=== PATIENT | male | born 1985 | race Caucasian/White ===

== ENCOUNTER → 2024-06-13 | Outpatient (CLI) | payer BC, SELFPAY ==
[2024-06-13 13:21] LABS: Anion Gap 12 (5-15); BUN 9 mg/dL (4-19); BUN/Creat Ratio 12.8 RATIO (10-20); Calcium,Total 9.8 mg/dL (7.6-11.0); Chloride 105 mmol/L (98-108); Cholesterol 155 mg/dL (<=200); Creatinine, Serum 0.74 mg/dL (0.70-1.20); EST Glomerular Filtration Rate 120 (>60); Glucose 114 mg/dL (70-99); High Density Lipoprotein 53 mg/dL; Low Density Lipoprotein Calc. 90 mg/dL; Potassium 4.3 mmol/L (3.3-5.1); Sodium Level 141 mmol/L (133-145); Triglycerides 63 mg/dL; Very Low Density Lipoprotein 13 mg/dL (5-40); cholesterol:hdl ratio screen 2.94
== END | disposition home or self-care (01) ==
LOC: MTLAB 11:19
PROVIDERS: PCP Family Medicine; Referring Provider Family Medicine; Visit Provider Family Medicine
DX: Z00.00 Encounter for general adult medical examination without abnormal findings (principal)
CPT/HCPCS: 36415; 80048; 80061

== ENCOUNTER 2024-06-20 11:18 | Emergency (ER) | payer BC, SELFPAY ==
[2024-06-20] VITALS (8 sets, daily range): BP systolic 135–159; BP diastolic 91–108; PULSE 71–94; RESP 14–17; TEMP 36.6–36.9; O2SAT 97–99; BMI 28.9
--- NOTE | 2024-06-20 11:41 | EKG12_ITS ---
Test Reason : CHEST PAIN Blood Pressure : */* mmHG Vent. Rate : 82 BPM Atrial Rate : 82 BPM P-R Int : 120 ms QRS Dur : 104 ms QT Int : 380 ms P-R-T Axes : 55 70 18 degrees QTcB Int : 443 ms Normal sinus rhythm Normal ECG Confirmed by Jaden Porter ([id number]), newspaper editor MANUEL SPEARS ([id number]) on 06/23/2024 6:51:01 AM Referred By: Confirmed By: Jaden Porter
--- NOTE | 2024-06-20 11:41 | RAD_ITS ---
PROCEDURE: CHEST PA AND LATERAL 06/20/2024 REASON FOR EXAM: CHEST PAIN. ELEVATED BLOOD PRESSURE. TECHNIQUE: Frontal and lateral views of the chest. COMPARISON: No relevant prior. FINDINGS: Lungs: Lungs clear of pneumonia and congestion. Old healed granulomatous changes. Pleura: No pleural effusions, thickening, or pneumothorax. Heart: Normal in size and configuration. Mediastinum/Rylee: Unremarkable. Great vessels: Unremarkable. Bones/soft tissues: Unremarkable. Cardiac monitoring leads overlie the chest wall. RAD/Chest PA and Lateral IMPRESSION: No active cardiopulmonary disease. Sign report. Reading Location: [place] [id number]
--- NOTE | 2024-06-20 11:49 | ED.VIS.CHEST ---
HPI History of Present Illness Chief Complaint: Chest Pain Narrative Narrative: Patient is a 38-year-old male with past medical history of hypertension who presented to the emergency department the chief complaint of elevated blood pressure and chest pain. Patient states that about an hour ago he noted that his blood pressure was elevated and he had chest pain associated with this. He states that he checked his blood pressure this morning as he has been checking on a regular basis because he has a follow-up appointment coming up with his primary care physician in regards to his elevated blood pressure. He states that he was recently started on 5 mg of lisinopril for his elevated blood pressure. He states that originally he had hypertension but dropped about 40 pounds and his blood pressure normalized. He states that recently he did travel to [place] with his father and notes that they did not take any breaks they basically drove straight there and then on return home drove straight back. He states that he has no history of blood clots. He does endorse some shortness of breath with this. [facility] Medical History Hypertension Home Medications ?Medication ?Instructions ?Recorded ?Last Taken ?Type lisinopril 5 mg tablet 5 mg PO DAILY 06/20/24 06/20/24 History Allergy/AdvReac Type Severity Reaction Status Date / Time No Known Allergies Allergy Verified 06/20/24 11:36 Social History Smoking Status: Never smoker ROS ROS ED ROS Narrative Constitutional: Denies fevers, chills, headaches Cardiovascular: Complains of chest pain as noted above denies palpitations Respiratory: Complains of some shortness of breath denies coughing wheezing Abdomen: Denies nausea vomit diarrhea Neurological: Denies numbness, weakness, tingling Musculoskeletal: Denies back pain Skin: Denies rashes or lesions EXAM Physical Exam Narrative Exam Narrative: General: Patient was lying in bed rest comfortably did not appear to be in acute distress Head: Atraumatic, normocephalic Eyes: PERRL bilateral, EOMI bilateral, no conjunctival injection noted Neck: Soft, supple, trachea midline Cardiovascular: Regular rate and rhythm Respiratory: Clear to auscultation bilaterally Abdomen: Soft, nondistended no tenderness palpation Extremities: +5/5 strength noted in the bilateral upper and lower extremity, radial pulse +2/4 in the about upper extremities Neurological: Patient was following commands knew that he was at [facility] 2024 Skin: Warm, dry, intact no rashes or lesions noted Const Vital Signs: 06/20/24 11:18 06/20/24 11:32 06/20/24 11:41 Temperature 98.4 F Temperature Source Oral Pulse Rate 87 Respiratory Rate 16 Respiratory Effort Normal Blood Pressure 159/108 H Blood Pressure Mean 125 Pulse Ox 99 98 Oxygen Delivery Method Room Air Room Air 06/20/24 12:18 06/20/24 13:00 06/20/24 13:49 Temperature Temperature Source Pulse Rate 74 71 72 Respiratory Rate 16 16 16 Respiratory Effort Blood Pressure 144/91 H 135/100 H 135/100 H Blood Pressure Mean 108 111 111 Pulse Ox 98 97 98 Oxygen Delivery Method Room Air Room Air 06/20/24 14:00 Temperature Temperature Source Pulse Rate 94 Respiratory Rate 14 Respiratory Effort Blood Pressure 146/99 H Blood Pressure Mean 114 Pulse Ox 98 Oxygen Delivery Method MDM MDM MDM Narrative Medical decision making narrative: Patient is a 38-year-old male who presented to the emerged part with a chief complaint of chest pain. On the differential diagnose includes but limited to hypertension, hypertensive emergency, PE. Once workup is obtained reviewed he will be reevaluated. Patient's CBC was reviewed and showed no evidence leukocytosis white blood count was normal at 9, hemoglobin 15.1, platelet count normal at 405. Patient D-dimer normal at 0.30, sodium normal 140, potassium of 4, creatinine normal at 0.80. Patient troponin was 7 with a delta troponin obtained RB 7. Patient's EKG reviewed showed sinus rhythm with a rate of 82 bpm. Patient's chest x-ray was reviewed and showed no active cardiopulmonary disease. On reevaluation the patient is feeling better he would like to go home at this point time. Patient's lisinopril will be increased from 5 mg to 10 mg daily and was advised to keep a blood pressure log like he is doing. He is advised to call his primary care physician for a follow-up appointment and return with worsening symptoms or concerns. He is agreeable this plan as well as mother at bedside all question concerns answered he is discharged home in stable condition. Lab Data Labs: Laboratory Results - last 24 hr 06/20/24 06/20/24 11:30 13:16 WBC 9.0 RBC 4.85 Hgb 15.1 Hct 45.0 MCV 92.8 MCH 31.1 MCHC 33.6 RDW Std Deviation 40.3 RDW Coeff of Sammy 11.8 Plt Count 405 MPV 9.9 Immature Gran % (Auto) 0.300 Neut % (Auto) 73.1 H Lymph % (Auto) 18.2 L [place] % (Auto) 6.7 Eos % (Auto) 1.1 Baso % (Auto) 0.6 Absolute Neuts (auto) 6.6 Absolute Lymphs (auto) 1.64 Nucleated RBC % 0 D-Dimer Quant (PE/DVT) 0.30 Sodium 140 Potassium 4.0 Chloride 104 Carbon Dioxide 21.7 Anion Gap 14 BUN 9 Creatinine 0.80 Estim Creat Clear Calc 156.84 Est GFR (MDRD) Non-Af 117 BUN/Creatinine Ratio 11.1 Glucose 112 H Calcium 9.9 Troponin T High Sens 7 Troponin T Hi Sens 2 Hr 7 Radiography Diagnostic Testing: Clinical Impression(s) from Imaging Studies Chest X-Ray 06/20/24 11:41 IMPRESSION: No active cardiopulmonary disease. Sign report. Reading Location: [place] [address] Discharge Plan Triage Chief Complaint: Chest Pain ED Provider: Garrick Ma Dx/Rx/DC Orders Clinical Impression: Chest pain, Hypertension Prescriptions: No Action lisinopril 5 mg tablet 5 mg PO DAILY Primary Care Provider: Hiren Ansari Referrals: Hiren Ansari MD [Primary Care Provider] - Activity Restrictions/Additional Instructions: Increase your lisinopril dose from 5 mg to 10 mg daily. Keep your blood pressure log as you are already doing. Return for worsening symptoms or concerns as we discussed here. Your workup here today was largely unremarkable. Print Language: Mold[place] Disposition Disposition: Home, Self Care
[2024-06-20 11:55] LABS: Absolute Lymphocyte Count 1.64 X10^3/uL (0.83-4.51); Absolute Neutrophil Count 6.6 X10^3/uL (2.0-7.7); Basophil# 0.05 X10^3/uL; Basophil% 0.6 % (0-1); Eosinophils% 1.1 % (0-5); Hemoglobin 15.1 g/dL (13.0-16.5); Lymphocyte # 1.64 X10^3/ul (0.83-4.51); Lymphocyte % 18.2 % (19-41); Mean Corp Hgb Conc 33.6 g/dL (32-36); Mean Corpuscular Hgb 31.1 pg (27.0-32.0); Mean Corpuscular Volume 92.8 fL (80-94); Mean Platelet Vol. 9.9 fl (6.2-12.0); Monocyte% 6.7 % (0-10); NRBC Flagged by Analyzer 0 % (0-5); Neutrophil # 6.59 X10^3/uL (2.7-7.7); Neutrophil % 73.1 % (47-70); Platelet Count 405 K/mm3 (150-450); RBC Distribution Width CV 11.8 % (11.6-14.6); RBC Distribution Width SD 40.3 fl (35.1-43.9); Red Blood Count 4.85 M/mm3 (4.6-6.2)
[2024-06-20 12:21] LABS: Anion Gap 14 (5-15); BUN 9 mg/dL (4-19); BUN/Creat Ratio 11.1 RATIO (10-20); Calcium,Total 9.9 mg/dL (7.6-11.0); Carbon Dioxide 21.7 mmol/L (21.0-32.0); Chloride 104 mmol/L (98-108); EST Glomerular Filtration Rate 117 (>60); Estimated Creatinine Clearance 156.84 ml/min (50-250); Glucose 112 mg/dL (70-99); Sodium Level 140 mmol/L (133-145); Troponin T High Sensitivity 7 ng/L (<=22)
[2024-06-20 14:10] LABS: Troponin T High Sens 2 HR 7 ng/L (<=22)
== END 2024-06-20 14:49 | disposition home or self-care (01) ==
PROVIDERS: Emergency Provider Emergency Medicine; PCP Family Medicine; Visit Provider Emergency Medicine
DX: R07.9 Chest pain, unspecified (principal); I10 Essential (primary) hypertension
CPT/HCPCS: 71046; 80048; 84484; 85025; 85379; 93005; 99284; A4216

== ENCOUNTER → 2024-10-17 | Outpatient (CLI) | payer BC, SELFPAY ==
--- OUTSIDE RECORDS SUMMARY | 2024-10-17 06:24 | XMS RPT_ITS | CCD ---
Author Organization [facility] Team Providers Care Extrusion Die Coordinator Name Role Phone Unavailable Primary Care Provider UnavailEMELY Bradford Referring Unavailable JULIAN DIEHL Consulting Unavailable Coty FERRER, Dr. Maradiaga Primary Care Provider [phone] Coty FERRER, Dr. Maradiaga Attending Provider Coty FERRER, Dr. Maradiaga Referring Provider [phone] Dr. Garrick Ma DO Emergency Provider Hiren Ansari Primary Care Unavailable Hiren Ansari Attending Unavailable Hiren Ansari Referring Unavailable Hiren Ansari Primary Care Unavailable Garrick Ma Attending Unavailable NONE NONE, NONE~[phone] NONE Primary Care Unavailable MAXWELL DO~[phone], MAXWELL MELVIN K Attending Unavailable MAXWELL DO~[phone], MAXWELL MELVIN K Admitting Unavailable NONE NONE, NONE~[phone] NONE Consulting Unavailable SULMA, Consulting Unavailable ROSA KELLY APRN Consulting Unavail able ROSA KELLY APRN Consulting Unavail able Allergies Allergy Classification Reported Allergen(s) Allergy Type Date of Onset Reaction(s) Facility (1 source) MISC-ENV; Translations: [MISC-ENV] Propensity to adverse reactions (disorder) [facility] Repository Medications Current Medications Medication Drug Class(es) Dates Sig (Normalized) Sig (Original) lisinopril 5 mg oral tablet (1 source) Angiotensin Converting Enzyme Inhibitor Start: 06-20-2024 take 1 tablet by mouth once daily Lisinopril 5 mg tablet Active 5 mg PO DAILY June 20, 2024 12:00am Completed/Discontinued Medications Medication Drug Class(es) Dates Sig (Normalized) Sig (Original) losartan potassium 25 mg oral tablet (1 source) Angiotensin 2 Receptor Kaz Start: 10-24-2022 losartan (COZAAR) 25 mg tablet Problems Problem Classification Problem Date Documented Da te Episodic/Chronic E Codes: Place of occurrence (1 source) Garden or yard of unspecified non-institutional (private) residence as the place of occurrence of the external cause; Translations: [GARDN YRD UNS NON INST RES OCUR EXT] Onset: 07-30-2024 Episodic E Codes: Unspecified (1 source) Activity, gardening and landscaping; Translations: [ACTIVITY GARDENING AND LANDSCAPING] Onset: 07-30-2024 Episodic Essential hypertension (1 source) Hypertensive disorder; Translations: [Essential (primary) hypertension] 06-20-2024 Chronic Nonspecific chest pain (4 sources) Chest pain; Translations: [Chest pain, unspecified] Onset: 11-08-2022 11-08-2022 Episodic Other injuries and conditions due to external causes (3 sources) Foreign body on external eye, part unspecified, right eye, initial encounter; Translations: [FB EXT EYE PART UNS RT EYE INIT ENC] Onset: 07-25-2024 Episodic Unclassified (1 source) OTH OBJ OWEN/ORG MAT OWEN ORIFICE INT; Translations: [OTH OBJ OWEN/ORG MAT OWEN ORIFICE INT] Onset: 07-30-2024 Results Test Name Value Interpretation Reference Range Facility 12 Lead EKGon 06-20-2024 12 Lead EKG [facility] Cardiovascular Services [address] [place] [address] 12 Lead EKG 06/20/24 1123 MR#: [id number] Acct: [id number] Name: WILMAN HEARD Yanira Rep #: [id number] : 1985 38 From: Jaden Porter MD Attending Dr: Status: DEP ER Ordering Dr: Garrick Ma DO Date: 06/20/24 Location: ED Sex: M C Admitted: Test Reason : CHEST PAIN Blood Pressure : */* mmHG Vent. Rate : 82 BPM Atrial Rate : 82 BPM P-R Int : 120 ms QRS Dur : 104 ms QT Int : 380 ms P-R-T Axes : 55 70 18 degrees QTcB Int : 443 ms Normal sinus rhythm Normal ECG Confirmed by Jaden Porter ([id number]), assistant production editor MANUEL SPEARS ([id number]) on 06/23/2024 6:51:01 AM Referred By: Confirmed By: Jaden Porter 06/23/24 0651 Date Jaden Porter MD CC: Dr. Hiren Ansari MD; Dr. Garrick Ma DO Signed Normal [facility] Absolute neutrophil countOrd ered By: Garrick Ma on 06-20-2024 Neutrophils (Bld) [#/Vol] 6.6 10*3/uL 2.0-7.7 [facility] Anion gap in Serum or Plasma Ordered By: Garrick Ma on 06-20-2024 Anion gap [Moles/Vol] 14 mmol/L 07-24 [facility] BUN/creatinine ratioOrdered By: Garrick Ma on 06-20-2024 Urea nitrogen/Creatinine [Mass ratio] 11.1 mg/mg 12-29 [facility] Basic Metabolic Profile (BMP )on 06-20-2024 BUN/CRE 11.1 RATIO Normal 12-29 [facility] Comment on above: Performed By: #### L 500.2500, L100.0100, L300.8000, L501.4021 #### [facility] [address] [place], [address] Calcium [Mass/Vol] 9.9 mg/dL Normal 7.6-11.0 [facility] Comment on above: Performed By: #### L 500.2500, L100.0100, L300.8000, L501.4021 #### [facility] [address] [place], [address] Chloride [Moles/Vol] 104 mmol/L Normal 98-108 [facility] Comment on above: Performed By: #### L 500.2500, L100.0100, L300.8000, L501.4021 #### [facility] [address] [place], [address] CO2 [Moles/Vol] 21.7 mmol/L Normal 21.0-32.0 [facility] Comment on above: Performed By: #### L 500.2500, L100.0100, L300.8000, L501.4021 #### [facility] [address] [place], [address] Creatinine [Mass/Vol] 0.80 mg/dL Normal 0.70-1.20 [facility] Comment on above: Performed By: #### L 500.2500, L100.0100, L300.8000, L501.4021 #### [facility] [address] [place], [address] ECRCL 156.84 ml/min Normal 50-250 [facility] Comment on above: Performed By: #### L 500.2500, L100.0100, L300.8000, L501.4021 #### [facility] [address] [place], [address] GAP 14 Normal 5-15 [facility] Comment on above: Performed By: #### L 500.2500, L100.0100, L300.8000, L501.4021 #### [facility] [address] [place], [address] GFR/1.73 sq M.predicted among non-blacks MDRD (S/P/Bld) [Vol rate/Area] 117 mL/min/{1.73_m2} Normal >60 [facility] Comment on above: Result Comment: mL/m in/1.73m2 CKD-EPI Creatinine Equation (2020) Performed By: #### L 500.2500, L100.0100, L300.8000, L501.4021 #### [facility] [address] [place], [address] Glucose [Mass/Vol] 112 mg/dL High 70-99 [facility] Comment on above: Performed By: #### L 500.2500, L100.0100, L300.8000, L501.4021 #### [facility] [address] [place], [address] Potassium [Moles/Vol] 4.0 mmol/L Normal 3.3-5.1 [facility] Comment on above: Performed By: #### L 500.2500, L100.0100, L300.8000, L501.4021 #### [facility] [address] [place], [address] Sodium [Moles/Vol] 140 mmol/L Normal 133-145 [facility] Comment on above: Performed By: #### L 500.2500, L100.0100, L300.8000, L501.4021 #### [facility] [address] [place], [address] Urea nitrogen [Mass/Vol] 9 mg/dL Normal 4-19 [facility] Comment on above: Performed By: #### L 500.2500, L100.0100, L300.8000, L501.4021 #### [facility] [address] [place], [address] Basophil percentageOrdered B y: Garrick Anil on 06-20-2024 Basophils/100 WBC (Bld) 0.6 % 0-1 [facility] CBC W/Diff, Automatedon 06-10 Absolute Lymph 1.64 X10 3/uL Normal 0.83-4.51 [facility] Comment on above: Performed By: #### L 500.2500, L100.0100, L300.8000, L501.4021 #### [facility] [address] [place], [address] Absolute Neut 6.6 X10 3/uL Normal 2.0-7.7 [facility] Comment on above: Performed By: #### L 500.2500, L100.0100, L300.8000, L501.4021 #### [facility] [address] [place], [address] Basophils/100 WBC (Bld) 0.6 % Normal 0-1 [facility] Comment on above: Performed By: #### L 500.2500, L100.0100, L300.8000, L501.4021 #### [facility] [address] [place], [address] Eosinophils/100 WBC (Bld) 1.1 % Normal 0-5 [facility] Comment on above: Performed By: #### L 500.2500, L100.0100, L300.8000, L501.4021 #### [facility] [address] [place], [address] Erythrocyte distribution width (RBC) [Ratio] 11.8 % Normal 11.6-14.6 [facility] Comment on above: Performed By: #### L 500.2500, L100.0100, L300.8000, L501.4021 #### [facility] [address] [place], [address] Hematocrit (Bld) [Volume fraction] 45.0 % Normal 40-54 [facility] Comment on above: Performed By: #### L 500.2500, L100.0100, L300.8000, L501.4021 #### [facility] [address] [place], [address] Hemoglobin (Bld) [Mass/Vol] 15.1 g/dL Normal 13.0-16.5 [facility] Comment on above: Performed By: #### L 500.2500, L100.0100, L300.8000, L501.4021 #### [facility] [address] [place], [address] IG% 0.300 Normal 0.0-0.9 [facility] Comment on above: Result Comment: IG% - Immature Granulocytes (promyelocytes, myelocytes and metamyelocytes) > 1% indicates that a LEFT SHIFT is Present. Performed By: #### L 500.2500, L100.0100, L300.8000, L501.4021 #### [facility] [address] [place], [address] Lymphocytes/100 WBC (Bld) 18.2 % Low 19-41 [facility] Comment on above: Performed By: #### L 500.2500, L100.0100, L300.8000, L501.4021 #### [facility] [address] [place], [address] MCH (RBC) [Entitic mass] 31.1 pg Normal 27.0-32.0 [facility] Comment on above: Performed By: #### L 500.2500, L100.0100, L300.8000, L501.4021 #### [facility] [address] [place], [address] MCHC (RBC) [Mass/Vol] 33.6 g/dL Normal 32-36 [facility] Comment on above: Performed By: #### L 500.2500, L100.0100, L300.8000, L501.4021 #### [facility] [address] [place], [address] MCV (RBC) [Entitic vol] 92.8 fL Normal 80-94 [facility] Comment on above: Performed By: #### L 500.2500, L100.0100, L300.8000, L501.4021 #### [facility] [address] [place], [address] Monocytes/100 WBC (Bld) 6.7 % Normal 0-10 [facility] Comment on above: Performed By: #### L 500.2500, L100.0100, L300.8000, L501.4021 #### [facility] [address] [place], [address] Neutrophils/100 WBC (Bld) 73.1 % High 47-70 [facility] Comment on above: Performed By: #### L 500.2500, L100.0100, L300.8000, L501.4021 #### [facility] [address] [place], [address] Nucleated RBC (Bld) [#/Vol] 0 10*3/uL Normal 0-5 [facility] Comment on above: Performed By: #### L 500.2500, L100.0100, L300.8000, L501.4021 #### [facility] [address] [place], [address] Platelet mean volume (Bld) [Entitic vol] 9.9 fL Normal 6.2-12.0 [facility] Comment on above: Performed By: #### L 500.2500, L100.0100, L300.8000, L501.4021 #### [facility] [address] [place], [address] Platelets (Bld) [#/Vol] 405 10*3/uL Normal 150-450 [facility] Comment on above: Performed By: #### L 500.2500, L100.0100, L300.8000, L501.4021 #### [facility] [address] [place], [address] RBC (Bld) [#/Vol] 4.85 10*6/uL Normal 4.6-6.2 [facility] Comment on above: Performed By: #### L 500.2500, L100.0100, L300.8000, L501.4021 #### [facility] [address] [place], [address] RDW SD 40.3 fl Normal 35.1-43.9 [facility] Comment on above: Performed By: #### L 500.2500, L100.0100, L300.8000, L501.4021 #### [facility] [address] [place], [address] WBC (Bld) [#/Vol] 9.0 10*3/uL Normal 4.4-11.0 [facility] Comment on above: Performed By: #### L 500.2500, L100.0100, L300.8000, L501.4021 #### [facility] [address] [place], [address] Carbon dioxide, total [Moles /volume] in Central venous bloodOrdered By: Garrick Ma on 06-20-2024 CO2 [Moles/Vol] 21.7 mmol/L 21.0-32.0 [facility] Chest PA and Lateralon 06-20 Chest PA and Lateral [facility] Imaging Services [address] [place] [address] Chest PA and Lateral MR#: [id number] Acct: [id number] Name: WILMAN HEARD Rep #: [id number] : 1985 M 38 From: James Bedolla MD PCP: Dr. Hiren Ansari MD Status: PRE ER Study: Chest PA and Lateral Date of Exam: 06/20/24 Exam# [id number] Ordering Dr: Garrick Ma DO PROCEDURE: CHEST PA AND LATERAL 06/20/2024 REASON FOR EXAM: CHEST PAIN. ELEVATED BLOOD PRESSURE. TECHNIQUE: Frontal and lateral views of the chest. COMPARISON: No relevant prior. FINDINGS: Lungs: Lungs clear of pneumonia and congestion. Old healed granulomatous changes. Pleura: No pleural effusions, thickening, or pneumothorax. Heart: Normal in size and configuration. Mediastinum/Rylee: Unremarkable. Great vessels: Unremarkable. Bones/soft tissues: Unremarkable. Cardiac monitoring leads overlie the chest wall. RAD/Chest PA and Lateral IMPRESSION: No active cardiopulmonary disease. Sign report. Reading Location: [place] [address] CC: Dr. Hiren Ansari MD; Dr. Garrick Ma DO Health Underwriter: Signed Normal [facility] Chloride assayOrdered By: Negro Ma on 06-20-2024 Chloride [Moles/Vol] 104 mmol/L 98-108 [facility] D-Dimer Quantitative (DVT/PE )on 06-20-2024 D-DIMER QUANT 0.30 FEU/ug/m Normal 0.27-0.49 [facility] Comment on above: Result Comment: NORM AL D-Dimer level (<0.50) indicates no DVT or PE. Performed By: #### L 500.2500, L100.0100, L300.8000, L501.4021 #### [facility] [address] [place], [address] D-dimer measurement for deep venous thrombosisOrdered By: Garrick Ma on 06-20-2024 D-Dimer Quantitative (PE/DVT) 0.30 FEU/ug/m 0.27-0.49 [facility] Comment on above: NORMAL D-Dimer level (<0.50) indicates no DVT or PE. Emergency Department Summary on 06-20-2024 Emergency Department Summary [facility] Medical Records Department [address] [facility] [place] [address] Emergency Department Summary 06/20/24 MR#: [id number] Acct: [id number] Name: WILMAN HEARD Rep #: [id number] : 1985 38 From: Garrick Ma DO PCP: Dr. Hiren Ansair MD Status:REG ER Location: ED HPI History of Present Illness Chief Complaint: Chest Pain Narrative Narrative: Patient is a 38-year-old male with past medical history of hypertension who presented to the emergency department the chief complaint of elevated blood pressure and chest pain. Patient states that about an hour ago he noted that his blood pressure was elevated and he had chest pain associated with this. He states that he checked his blood pressure this morning as he has been checking on a regular basis because he has a follow-up appointment coming up with his primary care physician in regards to his elevated blood pressure. He states that he was recently started on 5 mg of lisinopril for his elevated blood pressure. He states that originally he had hypertension but dropped about 40 pounds and his blood pressure normalized. He states that recently he did travel to [place] with his father and notes that they did not take any breaks they basically drove straight there and then on return home drove straight back. He states that he has no history of blood clots. He does endorse some shortness of breath with this. [facility] Medical History Hypertension Home Medications ???Medication ???Instructions ???Recorded ???Last Taken ???Type lisinopril 5 mg tablet 5 mg PO DAILY 06/20/24 06/20/24 Hi story Allergy/AdvReac Type Severity Reaction Status Date / Time No Known Allergies Allergy Verified 06/20/24 11:36 Social History Smoking Status: Never smoker ROS ROS ED ROS Narrative Constitutional: Denies fevers, chills, headaches Cardiovascular: Complains of chest pain as noted above denies palpitations Respiratory: Complains of some shortness of breath denies coughing wheezing Abdomen: Denies nausea vomit diarrhea Neurological: Denies numbness, weakness, tingling Musculoskeletal: Denies back pain Skin: Denies rashes or lesions EXAM Physical Exam Narrative Exam Narrative: General: Patient was lying in bed rest comfortably did not appear to be in acute distress Head: Atraumatic, normocephalic Eyes: PERRL bilateral, EOMI bilateral, no conjunctival injection noted Neck: Soft, supple, trachea midline Cardiovascular: Regular rate and rhythm Respiratory: Clear to auscultation bilaterally Abdomen: Soft, nondistended no tenderness palpation Extremities: +5/5 strength noted in the bilateral upper and lower extremity, radial pulse +2/4 in the about upper extremities Neurological: Patient was following commands knew that he was at [facility] years 2024 Skin: Warm, dry, intact no rashes or lesions noted Const Vital Signs: 06/20/24 11:18 06/20/24 11:32 06/20/24 11:41 Temperature 98.4 F Temperature Source Oral Pulse Rate 87 Respiratory Rate 16 Respiratory Effort Normal Blood Pressure 159/108 H Blood Pressure Mean 125 Pulse Ox 99 98 Oxygen Delivery Method Room Air Room Air 06/20/24 12:18 06/20/24 13:00 06/20/24 13:49 Temperature Temperature Source Pulse Rate 74 71 72 Respiratory Rate 16 16 16 Respiratory Effort Blood Pressure 144/91 H 135/100 H 135/100 H Blood Pressure Mean 108 111 111 Pulse Ox 98 97 98 Oxygen Delivery Method Room Air Room Air 06/20/24 14:00 Temperature Temperature Source Pulse Rate 94 Respiratory Rate 14 Respiratory Effort Blood Pressure 146/99 H Blood Pressure Mean 114 Pulse Ox 98 Oxygen Delivery Method MDM MDM MDM Narrative Medical decision making narrative: Patient is a 38-year-old male who presented to the emerged part with a chief complaint of chest pain. On the differential diagnose includes but limited to hypertension, hypertensive emergency, PE. Once workup is obtained reviewed he will be reevaluated. Patient's CBC was reviewed and showed no evidence leukocytosis white blood count was normal at 9, hemoglobin 15.1, platelet count normal at 405. Patient D-dimer normal at 0.30, sodium normal 140, potassium of 4, creatinine normal at 0.80. Patient troponin was 7 with a delta troponin obtained RB 7. Patient's EKG reviewed showed sinus rhythm with a rate of 82 bpm. Patient's chest x-ray was reviewed and showed no active cardiopulmonary disease. On reevaluation the patient is feeling better he would like to go home at this point time. Patient's lisinopril will be increased from 5 mg to 10 mg daily and was advised to keep a blood pressure log like he (more content not included)... Normal [facility] Eosinophil percentageOrdered By: Garrick Ma on 06-20-2024 Eosinophils/100 WBC (Bld) 1.1 % 0-5 [facility] Erythrocyte distribution wid th (RBC) [Ratio]Ordered By: Garrick Ma on 06-20-2024 Erythrocyte distribution width (RBC) [Entitic vol] 40.3 fL 35.1-43.9 [facility] Erythrocyte distribution wid th ratioOrdered By: Garrick Ma on 06-20-2024 Erythrocyte distribution width (RBC) [Ratio] 11.8 % 11.6-14.6 [facility] Estimation of creatinine valarie aranceOrdered By: Garrick Ma on 06-20-2024 Estimated Creatinine Clearance Calc 156.84 ml/min 50-250 [facility] GFR/1.73 sq M.predicted ric g non-blacks MDRD (S/P/Bld) [Vol rate/Area]Ordered By: Garrick Ma on 06-20-2024 Estimated GFR (MDRD) Non-Af Amer 117 >60 [facility] Comment on above: mL/min/1.73m2 CKD-EP I Creatinine Equation (2020) Hematocrit Auto (Bld) [Volum e fraction]Ordered By: Garrick Ma on 06-20-2024 Hematocrit (Bld) [Volume fraction] 45.0 % 40-54 [facility] Hemoglobin measurementOrdere d By: Garrick Ma on 06-20-2024 Hemoglobin (Bld) [Mass/Vol] 15.1 g/dL 13.0-16.5 [facility] Immature granulocytes/100 WB C Auto (Bld)Ordered By: Garrick Ma on 06-20-2024 Immature granulocytes/100 WBC (Bld) 0.300 % 0.0-0.9 [facility] Comment on above: IG% - Immature Granu locytes (promyelocytes, myelocytes and metamyelocytes) > 1% indicates that a LEFT SHIFT is Present. L499.0042on 06-20-2024 Trop T High Sen 7 ng/L Normal <=22 [facility] Comment on above: Performed By: #### L 499.0042 #### [facility] [address] [place], [address] L499.0043on 06-20-2024 Trop T High Sen Normal <=22 [facility] Comment on above: Result Comment: Taya rose via OM: Ordered Performed By: #### L 499.0043 #### [facility] [address] [place], [address] L501.4021on 06-20-2024 Trop T High Sen 7 ng/L Normal <=22 [facility] Comment on above: Performed By: #### L 500.4100, L500.2500 #### [facility] [address] [place], [address] Lymphocytes Auto (Unsp spec) [#/Vol]Ordered By: Garrick Ma on 06-20-2024 Lymphocytes (Bld) [#/Vol] 1.64 10*3/uL 0.83-4.5 1 [facility] Lymphocytes/100 WBC Auto (Un sp spec)Ordered By: Garrick Ma on 06-20-2024 Lymphocytes/100 WBC (Bld) 18.2 % Low 19-41 [facility] MCV (mean corpuscular volume ) determinationOrdered By: Garrick Ma on 06-20-2024 MCV (RBC) [Entitic vol] 92.8 fL 80-94 [facility] Mean corpuscular hemoglobin (MCH) determinationOrdered By: Garrick Ma on 06-20-2024 MCH (RBC) [Entitic mass] 31.1 pg 27.0-32.0 [facility] Mean corpuscular hemoglobin concentration (MCHC) determinationOrdered By: Garrick Ma on 06-20-2024 MCHC (RBC) [Mass/Vol] 33.6 g/dL 32-36 [facility] Mean platelet volume determi nationOrdered By: Garrick Ma on 06-20-2024 Platelet mean volume (Bld) [Entitic vol] 9.9 fL 6.2-12.0 [facility] Monocyte percentageOrdered B y: Garrick Ma on 06-20-2024 Monocytes/100 WBC (Bld) 6.7 % 0-10 [facility] Neutrophil percentageOrdered By: Garrick Ma on 06-20-2024 Neutrophils/100 WBC (Bld) 73.1 % High 47-70 [facility] Nucleated red blood cell per centageOrdered By: Garrick Ma on 06-20-2024 Nucleated RBC/100 WBC (Bld) [Ratio] 0 % 0-5 [facility] Platelet countOrdered By: Negro Ma on 06-20-2024 Platelets (Bld) [#/Vol] 405 10*3/uL 150-450 [facility] Potassium (Unsp spec) [Mass/ Vol]Ordered By: Garrick Ma on 06-20-2024 Potassium [Moles/Vol] 4.0 mmol/L 3.3-5.1 [facility] RBC Auto (Bld) [#/Vol]Ordere d By: Garrick Ma on 06-20-2024 RBC (Bld) [#/Vol] 4.85 10*6/uL 4.6-6.2 [facility] Serum creatinine measurement (mass/volume)Ordered By: Garrick Ma on 06-20-2024 Creatinine [Mass/Vol] 0.80 mg/dL 0.70-1.20 [facility] Serum glucose measurement (m ass/volume)Ordered By: Garrick Ma on 06-20-2024 Glucose [Mass/Vol] 112 mg/dL High 70-99 [facility] Serum or plasma calcium cecilia urement (mass/volume)Ordered By: Garrick Ma on 06-20-2024 Calcium [Mass/Vol] 9.9 mg/dL 7.6-11.0 [facility] Serum or plasma urea nitroge n measurement (mass/volume)Ordered By: Garrick Ma on 06-20-2024 Urea nitrogen [Mass/Vol] 9 mg/dL 4-19 [facility] Sodium levelOrdered By: Ashley Ma on 06-20-2024 Sodium [Moles/Vol] 140 mmol/L 133-145 [facility] Troponin T.cardiac High sens itivity method [Mass/Vol]Ordered By: Garrick Ma on 06-20-2024 Troponin T High Sensitivity 2 Hour 7 ng/L <22 [facility] Troponin T High Sensitivity 7 ng/L <22 [facility] White blood cell (WBC) count Ordered By: Garrick Ma on 06-20-2024 WBC (Bld) [#/Vol] 9.0 10*3/uL 4.4-11.0 [facility] Anion gap in Serum or Plasma Ordered By: Hiren Ansari on 06-13-2024 Anion gap [Moles/Vol] 12 mmol/L 5-15 [facility] BUN/creatinine ratioOrdered By: Hiren Ansari on 06-13-2024 Urea nitrogen/Creatinine [Mass ratio] 12.8 mg/mg 10- [facility] Basic Metabolic Profile (BMP )on 06-13-2024 BUN/CRE 12.8 RATIO Normal - [facility] Comment on above: Performed By: #### L 500.3690, L500.2500 #### [facility] [address] [place], [place] [address], [address] Calcium [Mass/Vol] 9.8 mg/dL Normal 7.6-11.0 [facility] Comment on above: Performed By: #### L 500.4100, L500.2500 #### [facility] [address] [place], [address] Chloride [Moles/Vol] 105 mmol/L Normal 98-108 [facility] Comment on above: Performed By: #### L 500.4100, L500.2500 #### [facility] [address] [place], [address] CO2 [Moles/Vol] 24.0 mmol/L Normal 21.0-32.0 [facility] Comment on above: Performed By: #### L 500.4100, L500.2500 #### [facility] [address] [place], [address] Creatinine [Mass/Vol] 0.74 mg/dL Normal 0.70-1.20 [facility] Comment on above: Performed By: #### L 500.4100, L500.2500 #### [facility] [address] [place], [address] GAP 12 Normal 5-15 [facility] Comment on above: Performed By: #### L 500.4100, L500.2500 #### [facility] [address] [place], [address] GFR/1.73 sq M.predicted among non-blacks MDRD (S/P/Bld) [Vol rate/Area] 120 mL/min/{1.73_m2} Normal >60 [facility] Comment on above: Result Comment: mL/m in/1.73m2 CKD-EPI Creatinine Equation (2020) Performed By: #### L 500.4100, L500.2500 #### [facility] [address] [place], [address] Glucose [Mass/Vol] 114 mg/dL High 70-99 [facility] Comment on above: Performed By: #### L 500.4100, L500.2500 #### [facility] [address] [place], [address] Potassium [Moles/Vol] 4.3 mmol/L Normal 3.3-5.1 [facility] Comment on above: Performed By: #### L 500.4100, L500.2500 #### [facility] [address] [place], [address] Sodium [Moles/Vol] 141 mmol/L Normal 133-145 [facility] Comment on above: Performed By: #### L 500.4100, L500.2500 #### [facility] [address] [place], [address] Urea nitrogen [Mass/Vol] 9 mg/dL Normal 4-19 [facility] Comment on above: Performed By: #### L 500.4100, L500.2500 #### [facility] [address] [place], [address] Calculated very low density lipoprotein (VLDL) cholesterol measurementOrdered By: Hiren Ansari on 06-13-2024 VLDL Cholesterol 13 mg/dL 5-40 [facility] Carbon dioxide, total [Moles /volume] in Central venous bloodOrdered By: Hiren Ansari on 06-13-2024 CO2 [Moles/Vol] 24.0 mmol/L 21.0-32.0 [facility] Chloride assayOrdered By: Cristian Ansari on 06-13-2024 Chloride [Moles/Vol] 105 mmol/L 98-108 [facility] GFR/1.73 sq M.predicted ric g non-blacks MDRD (S/P/Bld) [Vol rate/Area]Ordered By: Hiren Ansari on 06-13-2024 Estimated GFR (MDRD) Non-Af Amer 120 >60 [facility] Comment on above: mL/min/1.73m2 CKD-EP I Creatinine Equation (2020) LDL calc ser/plasOrdered By: Hiren Ansari on 06-13-2024 LDL Cholesterol, Calculated 90 mg/dL [facility] Comment on above: Nojoktrcne=833-534 m g/dL & Higher Aabk=501 mg/dL or greater Lipid Profileon 06-13-2024 CHOL:HDL 2.94 Normal [facility] Comment on above: Performed By: #### L 500.4100, L500.2500 #### [facility] [address] [place], [address] Cholesterol [Mass/Vol] 155 mg/dL Normal <=200 [facility] Comment on above: Result Comment: Chol esterol level, Desirable <200 mg/dL Borderline high cholesterol 200-239 mg/dL High cholesterol >=240 mg/dL Recommendations of the NCEP Adult Treatment Panel for the following risk-cutoff thresholds for the [place] population. Performed By: #### L 500.4100, L500.2500 #### [facility] [address] [place], [address] Cholesterol in HDL [Mass/Vol] 53 mg/dL Normal [facility] Comment on above: Result Comment: Brie onal Cholesterol Education Program (NCEP) guidelines: <40 mg/dL: Low HDL-cholesterol (major risk factor for CHD) >= 60 mg/dL: High HDL-cholesterol (negative risk factor for CHD) HDL-cholesterol is affected by a number of factors, e.g. smoking, exercise, hormones, sex and age. Performed By: #### L 500.4100, L500.2500 #### [facility] [address] [place], [address] Cholesterol in LDL [Mass/Vol] 90 mg/dL Normal [facility] Comment on above: Result Comment: Bord gqcktm=082-391 mg/dL Higher Pnku=158 mg/dL or greater Performed By: #### L 500.4100, L500.2500 #### [facility] [address] [place], [address] Cholesterol in VLDL [Mass/Vol] 13 mg/dL Normal 5-40 [facility] Comment on above: Performed By: #### L 500.4100, L500.2500 #### [facility] [address] [place], [place], [address] Triglyceride [Mass/Vol] 63 mg/dL Normal [facility] Comment on above: Result Comment: The drugs N-Acetylcysteine and Metamizole may falsely depress this assay. Normal range: <150 mg/dL Borderline High: 150-199 mg/dL High: 200-499 mg/dL Very High: >500 mg/dL Performed By: #### L 500.4100, L500.2500 #### [facility] [address] [place], [place], [address] Potassium (Unsp spec) [Mass/ Vol]Ordered By: Hiren Ansari on 06-13-2024 Potassium [Moles/Vol] 4.3 mmol/L 3.3-5.1 [facility] Screening total cholesterol/ high density lipoprotein (HDL) cholesterol ratioOrdered By: Hiren Ansari on 06-13-2024 Cholesterol.total/Cholest saul in HDL [Mass ratio] 2.94 {ratio} [facility] Serum creatinine measurement (mass/volume)Ordered By: Hiren Ansrai on 06-13-2024 Creatinine [Mass/Vol] 0.74 mg/dL 0.70-1.20 [facility] Serum glucose measurement (m ass/volume)Ordered By: Hiren Ansari on 06-13-2024 Glucose [Mass/Vol] 114 mg/dL High 70-99 [facility] Serum or plasma calcium cecilia urement (mass/volume)Ordered By: Hiren Ansari on 06-13-2024 Calcium [Mass/Vol] 9.8 mg/dL 7.6-11.0 [facility] Serum or plasma cholesterol in HDL measurement (mass/volume)Ordered By: Hiren Ansari on 06-13-2024 Cholesterol in HDL [Mass/Vol] 53 mg/dL >40 [facility] Comment on above: National Cholesterol Education Program (NCEP) guidelines:<40 mg/dL: Low HDL-cholesterol (major risk factor for CHD)>= 60 mg/dL: High HDL-cholesterol (negative risk factor for CHD)HDL-cholesterol is affected by a number of factors, e.g. smoking, exercise, hormones, sex and age. Serum or plasma cholesterol measurement (mass/volume)Ordered By: Hiren Ansari on 06-13-2024 Cholesterol [Mass/Vol] 155 mg/dL <201 [facility] Comment on above: Cholesterol level, D esirable <200 mg/dLBorderline high cholesterol 200-239 mg/dLHigh cholesterol >=240 mg/dLRecommendations of the NCEP Adult Treatment Panel for the following risk-cutoff thresholds for the [place] population. Serum or plasma urea nitroge n measurement (mass/volume)Ordered By: Hiren Ansari on 06-13-2024 Urea nitrogen [Mass/Vol] 9 mg/dL 4-19 [facility] Sodium levelOrdered By: Hiren Ansari on 06-13-2024 Sodium [Moles/Vol] 141 mmol/L 133-145 [facility] Triglycerides measurementOrd ered By: Hiren Ansari on 06-13-2024 Triglyceride [Mass/Vol] 63 mg/dL <199 [facility] Comment on above: The drugs N-Acetylcy steine and Metamizole may falsely depress this assay. Normal range: <150 mg/dLBorderline High: 150-199 mg/dLHigh: 200-499 mg/dLVery High: >500 mg/dL CT CHEST FOR PE W/ CONTon CT CHEST FOR PE W/ CONT [place] [address] Name: WILMAN HEARD Phys: SARAH MERCADO D.O. : 86 Age: 37 Sex: M Acct: [id number] Loc: ED Exam Date: 11/08/22 Status: REG ER Radiology No.: Unit Number: [id number] Exam # Type/Exam [id number] CT / CT CHEST FOR PE W/ CONT EXAMINATION: CTA OF THE CHEST11/08/2022 9:54 pm CTA CHEST WITH CONTRAST TECHNIQUE: CTA of the chest was performed after the administration of intravenous contrast. Multiplanar reformatted images are provided for review. MIP images are provided for review. Automated exposure control, iterative reconstruction, and/or weight based adjustment of the mA/kV was utilized to reduce the radiation dose to as low as reasonably achievable. 3-D reformats were obtained on a separate workstation. COMPARISON: Chest, November 08, 2022 HISTORY: ORDERING SYSTEM PROVIDED HISTORY: TECHNOLOGIST PROVIDED HISTORY: Reason for Exam: CP/HIGH DIMER/TACHY FINDINGS: Thoracic inlet structures are unremarkable in appearance. No pathologically enlarged hilar or mediastinal lymph nodes. The great vessels, heart and pericardium are unremarkable in size and appearance. No focal infiltrate or pulmonary nodule. Calcified granulomas in right middle and lower lobes. No pleural effusion or pneumothorax. The incidentally included portions of the upper abdomen are within normal limits. The CT angiogram portion of the examination shows limited contrast enhancement of the pulmonary arteries. The main and segmental pulmonary arteries are of normal size. No intraluminal filling defects are seen through the level of the proximal segmental pulmonary arteries. IMPRESSION: 1. Limited examination without evidence of pulmonary embolus through the level of the proximal segmental pulmonary arteries. 2. No acute intrathoracic pathology.. Electronically signed By Keila Luciano MD 11/09/2022 12:15:44 AM EST Workstation ID : [id number] < > Reported By: KEILA LUCIANO M.D. Signed In Fluency By: KEILA LUCIANO M.D. << Signature on File>> Reported By: KEILA LUCIANO M.D. Signed By: KEILA LUCIANO M.D. Tests performed at: [address] [address] Normal [facility] D-DIMERon 11-09-2022 D-DIMER 1671 ng/mLDDU High <200-230 [facility] Comment on above: Result Comment: The cut-off level recommended for the exclusion of pulmonary embolism(PE) or deep vein thrombosis(DVT) is <=230ng/mL DDU. Performed By: #### L 200.1660 #### [facility] - [facility] [address] [place] [address] EMERGENCY DEPARTMENT REPORTo n 11-09-2022 EMERGENCY [place] [address] HEALTH INFORMATION MANAGEMENT EMERGENCY DEPARTMENT REPORT Patient: WILMAN HEARD ELLEN Fartun Parekh [id number] [age] M Status: DEP ER ED Date of Service: 11/08/22 This is a pleasant 37-year-old left in my care by Dr. Julian Diehl. Dr. Diehl had ordered labs and a D-dimer was one of them and felt that if the patient's troponins came back negative and his D-dimer was negative that he could be discharged, but his D-dimer came back high. So, he went ultimately for a PE study which has come back negative for pulmonary embolus at least to the level of main and segmental arteries. When I talked to the patient about his workup, he tells me that he is in extremely stressful position at this time. 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 He is only getting about 4 hours of sleep a night, and he thinks as a result of that, his blood pressures have been going up recently because it is super stressful. So, his blood pressure has been higher and then when he developed this pain today, even though he thinks it was from lifting because he has some reproducibility of this discomfort in his left chest that it was the high blood pressure that gave him more concern which brought him to the ED. So, at this point, his blood pressure is in the 150s. He is resting comfortably and he thinks he would like to be discharged. He says he only has a few more night shifts and then he is going to be transferred back to the day shift, which is much less stressful for him. In the meantime, we will have him continue his blood pressure medication, have him follow up with his PCP in [facility] where he lives, and should he need medication for the mild discomfort that he has when I palpate his pec, he could take an NSAID. Final dictation by Jess for Wilman Heard. IMPRESSION: 1. Atypical chest pain/musculoskeleta l chest pain. 2. Hypertension. Report#: Dict ID [id number] / Int ID [id number] 11/10/22 0702 ___ SARAH MERCADO D.O. cc: No Physician; SARAH MERCADO D.O. << Signature on File>> Reported By: SARAH MERCADO D.O. Signed By: SARAH MERCADO D.O. Tests performed at: [place] [address] [facility] EMERGENCY [place] [address] HEALTH INFORMATION MANAGEMENT EMERGENCY DEPARTMENT REPORT Patient: WILMAN HEARD SARAH MERCADO D.O. [id number] M Status: [facility] ER ED Date of Service: 11/08/22 ADDENDUM: Please add additionally, this patient had 2 troponins less than 12. Both of them were 6 actually. Report#: Dict ID [id number] / Int ID [id number] 11/10/22 0702 ___ SARAH MERCADO D.O. cc: No Physician; SARAH MERCADO D.O. << Signature on File>> Reported By: SARAH MERCADO D.O. Signed By: SARAH MERCADO D.O. Tests performed at: [facility] [address] [place] [address] [facility] EMERGENCY [place] [address] [facility] EMERGENCY DEPARTMENT REPORT Patient: WILMAN HEARD JULIAN DIEHL D.O. [id number] M Status: [facility] ER ED Date of Service: 11/08/22 CHIEF COMPLAINT: Chest pain. HISTORY OF PRESENT ILLNESS: 37-year-old gentleman with history of hypertension, presents with left-sided chest pain started this evening. It feels like a pulled muscle which he has had before. He said when he had before, he worked himself up and it was more anxious and he feels like he has that now. He has no history of ACS. He takes his blood pressure medications as prescribed. He denies any shortness of breath. No cough. No lightheadedness. No back pain. No fevers. No leg swelling or calf pain. No nausea, vomiting, or abdominal pain. He is not taking any medications for the chest pain itself. He does not have reflux. Does not smoke. He drinks 3-4 beers most days after work. Just depends. Reviewing his family history, he has history of heart issues in the family generally in his grandpa and older population, no 1 young. He denies any palpitations. REVIEW OF SYSTEMS: All systems reviewed unless otherwise specified are negative. PHYSICAL EXAMINATION: GENERAL: Sitting upright on bed, no acute distress. Nontoxic appearing, appears a little bit anxious, but nothing significant. SKIN: No vesicles or rash to the chest wall. MSK: No lower extremity edema or calf tenderness. Muscle strength 5/5 in bilateral upper and lower extremities. CHEST WALL: No tenderness to palpation. No reproducible chest wall tenderness. No crepitus in the chest wall. HEART: Regular rate and rhythm. No murmurs. PULM: CTAB. No wheezes. GI: Soft, nontender. CARDIAC: 2+ radial and PT pulses bilaterally. MEDICAL DECISION MAKING: Acute left-sided chest pain. Differential: Costochondritis, less likely pneumonia, not dissection or aneurysm, not STEMI , not arrhythmia. Shingles, less likely NSTEMI. Unstable angina, basal spasm, less likely PE. EKG, my interpretation shows sinus tachycardia with a rate at 106, nonspecific T-wave inversion III. No ST-segment abnormalities. Normal access. Normal intervals. No significant ischemia or infarct changes. Nonspecific EKG overall. Labs done show no significant CBC abnormality. Chemistry panel is unremarkable except for glucose of 108. Initial troponin is 6.78. We will repeat after 1 hour. D-dimer is pending. Chest x-ray is pending. The patient will be signed out to Dr. Mercado, night physician. Now working diagnosis of atypical chest pain. If dimer is elevated, may need a scan to rule out PE. We will repeat a troponin. I believe this will be likely normal. Need to continue his blood pressure medications and likely can go home as this is normal. Will be signed out to night physician. Initially, vital signs are stable at this time. Report#: Dict ID [id number] / Int ID [id number] 11/29/221929 ___ JULIAN DIEHL D.O. cc: JULIAN DIEHL D.O.; No Physician << Signature on File>> Reported By: JULIAN DIEHL D.O. Signed By: JULIAN DIEHL D.O. Tests performed at: [address] [address] Normal [facility] hsTROP Ton 11-09-2022 hsTROP T 6.56 ng/L Normal 6-12 [facility] Comment on above: Result Comment: When assessing risk for acute coronary syndromes: In patients undergoing blood draw greater than 2 hours from symptom onset, with history of very low to moderate risk and non-ischemic ECG, an initial hs-Troponin T less than 12 ng/L AND a 1 hour delta hs-Troponin T less than 3 ng/L should be considered very low risk for 30 day MACE. Performed By: #### L 301.0080 #### [facility] - [facility]AT[facility] [address] [place] [address] BMPon 11-08-2022 Anion gap [Moles/Vol] 20.6 mmol/L Normal 15-22 [facility] Comment on above: Performed By: #### L 100.0010, L301.0080 #### [facility] - [facility]ATORY [address] [place] [address] Calcium [Mass/Vol] 9.2 mg/dL Normal 8.6-10.0 [facility] Comment on above: Performed By: #### L 100.0010, L301.0080 #### [facility] - [facility]ATORY [address] [place] [address] Chloride [Moles/Vol] 99 mmol/L Normal 98-107 [facility] Comment on above: Performed By: #### L 100.0010, L301.0080 #### [facility] - [facility]ATORY [address] [place] [address] CO2 [Moles/Vol] 21 mmol/L Low 22-29 [facility] Comment on above: Performed By: #### L 100.0010, L301.0080 #### [facility] - [facility]AT[facility] [address] [place] [address] Creatinine [Mass/Vol] 0.86 mg/dL Normal 0.73-1.22 [facility] Comment on above: Performed By: #### L 100.0010, L301.0080 #### - LABORATORY [address] [place] [address] eGFR if AFR NUVIA > 60 ml/min/1.73m2 Normal [facility] Comment on above: Result Comment: eGFR >= 60 Indicates normal kidney function. * eGFR IS AN ESTIMATE * (AFR NUVIA = ) (non-AFR AM = NON-) MDRD calculation used in the eGFR should not be used to dose medications. For further limitations of the eGFR please refer to the Physician Website or the National Kidney Disease Education Program website (www.nkdep.nih.gov). Performed By: #### L 100.0010, L301.0080 #### [facility] - [facility]AT[facility] [address] [place] [address] eGFR nonAFR Nuvia > 60 ml/Min/1.73m2 Normal [facility] Comment on above: Performed By: #### L 100.0010, L301.0080 #### [facility] [address] [place] [address] Glucose [Mass/Vol] 108 mg/dL High 74-106 [facility] Comment on above: Performed By: #### L 100.0010, L301.0080 #### [facility] [address] [place] [address] Potassium [Moles/Vol] 3.6 mmol/L Normal 3.5-5.0 [facility] Comment on above: Performed By: #### L 100.0010, L301.0080 #### [facility] [address] [place] [address] Sodium [Moles/Vol] 137 mmol/L Normal 135-145 [facility] Comment on above: Performed By: #### L 100.0010, L301.0080 #### [facility] - [facility] [address] [place] [address] Urea nitrogen [Mass/Vol] 10 mg/dL Normal 6-20 [facility] Comment on above: Performed By: #### L 100.0010, L301.0080 #### [facility] - [facility] [address] [place] [address] Basic metabolic 2000 panelon 11-08-2022 Anion gap [Moles/Vol] 20.6 mmol/L 15 - 2 2 mmol/L [facility] Calcium [Mass/Vol] 9.2 mg/dL 8.6 - 10. 0 mg/dL [facility] Chloride [Moles/Vol] 99 mmol/L 98 - 10 7 mmol/L [facility] CO2 [Moles/Vol] 21 mmol/L Low 22 - 29 mmol/L [facility] Creatinine [Mass/Vol] 0.86 mg/dL 0.73 - 1.22 mg/dL [facility] eGFR-All Other Races > 60 ml/Min/1.73m2 [facility] GFR/1.73 sq M.predicted among blacks MDRD (S/P/Bld) [Vol rate/Area] mL/min/{1.73_m2} [facility] Glucose [Mass/Vol] 108 mg/dL High 74 - 106 mg/dL [facility] Potassium [Moles/Vol] 3.6 mmol/L 3.5 - 5.0 mmol/L [facility] Sodium [Moles/Vol] 137 mmol/L 135 - 145 mmol/L [facility] Urea nitrogen [Mass/Vol] 10 mg/dL 6 - 20 mg/d L [facility] CBCon 11-08-2022 BASO# 0.08 x10(3) Normal 0.00-0.10 [facility] Comment on above: Performed By: #### L 200.0010 ####ML - [id number] [place] [address] Basophils/100 WBC (Bld) 0.8 % Normal 0.0-1.0 [facility] Comment on above: Performed By: #### L 200.0010 ####ML - [id number] [place] [address] EOS# 0.11 x10(3) Normal 0.00-0.54 [facility] Comment on above: Performed By: #### L 200.0010 ####ML - [id number] [place] [address] Eosinophils/100 WBC (Bld) 1.1 % Normal 0.5-4.9 [facility] Comment on above: Performed By: #### L 200.0010 ####[facility] [id number] [place] [address] Erythrocyte distribution width (RBC) [Ratio] 11.8 % Low 12.7-15.3 [facility] Comment on above: Performed By: #### L 200.0010 ####[facility] [id number] [place] [address] Hematocrit (Bld) [Volume fraction] 43.7 % Normal 42.0-51.0 [facility] Comment on above: Performed By: #### L 200.0010 ####[facility] [id number] [place] [address] Hemoglobin (Bld) [Mass/Vol] 14.9 g/dL Normal 14.0-17.2 [facility] Comment on above: Performed By: #### L 200.0010 ####[facility] [id number] [place] [address] IMM GRAN# 0.03 x10(3) High 0-0 [facility] Comment on above: Performed By: #### L 200.0010 ####ML - [id number] [place] [address] IMM GRAN% 0.3 % Normal [facility] Comment on above: Performed By: #### L 200.0010 ####[facility] [address] [place] [address] LYMPH# 1.92 x10(3) Normal 1.00-3.50 [facility] Comment on above: Performed By: #### L 200.0010 ####ML [facility] [id number] [place] [address] Lymphocytes/100 WBC (Bld) 18.8 % Normal 16.0-48.0 [facility] Comment on above: Performed By: #### L 200.0010 ####ML [facility] [id number] [place] [address] MCH (RBC) [Entitic mass] 30.5 pg Normal 28.8-32.2 [facility] Comment on above: Performed By: #### L 200.0010 ####ML [facility] [id number] [place] [address] MCHC (RBC) [Mass/Vol] 34.1 g/dL Normal 33.0-36.0 [facility] Comment on above: Performed By: #### L 200.0010 ####ML - [id number] [place] [address] MCV (RBC) [Entitic vol] 89.4 fL Normal 80.0-94.0 [facility] Comment on above: Performed By: #### L 200.0010 ####ML [address] [address] MONO# 0.91 x10(3) High 0.30-0.80 [facility] Comment on above: Performed By: #### L 200.0010 ####ML [address] [address] Monocytes/100 WBC (Bld) 8.9 % Normal 4.3-11.2 [facility] Comment on above: Performed By: #### L 200.0010 ####ML [facility] [id number] [place] [address] NEUT# 7.15 x10(3) High 1.40-6.50 [facility] Comment on above: Performed By: #### L 200.0010 ####ML [facility] [id number] [place] [address] Neutrophils/100 WBC (Bld) 70.1 % Normal 45.0-73.0 [facility] Comment on above: Performed By: #### L 200.0010 ####ML [facility] [id number] [place] [address] Platelet mean volume (Bld) [Entitic vol] 9.8 fL High 7.4-9.2 [facility] Comment on above: Performed By: #### L 200.0010 ####ML - [facility] [id number] [place] [address] PLT 346 X10(3) Normal 150-450 [facility] Comment on above: Performed By: #### L 200.0010 ####ML - [id number] [place] [address] RBC 4.89 x10(6) Normal 4.80-5.50 [facility] Comment on above: Performed By: #### L 200.0010 ####ML - [facility] [id number] [place] [address] WBC 10.2 x10(3) High 4.5-10.0 [facility] Comment on above: Performed By: #### L 200.0010 ####ML - [id number] [place] [address] CBC W Auto Differential pane l (Bld)on 11-08-2022 BASO ABS 0.08 x10(3) 0.00 - 0.10 x10(3) [facility] Basophils/100 WBC (Bld) 0.8 % 0.0 - 1.0 % [facility] EOS ABS 0.11 x10(3) 0.00 - 0.54 x10(3) [facility] Eosinophils/100 WBC (Bld) 1.1 % 0.5 - 4.9 % [facility] Erythrocyte distribution width (RBC) [Ratio] 11.8 % Low 12.7 - 15.3 % [facility] Hematocrit (Bld) [Volume fraction] 43.7 % 42.0 - 51.0 % [facility] Hemoglobin (Bld) [Mass/Vol] 14.9 g/dL 14.0 - 17.2 g/dL [facility] Immature Gran % 0.3 % [facility] Immature Gran Abs 0.03 x10(3) High 0 - 0 x10(3) [facility] LYMPH ABS 1.92 x10(3) 1.00 - 3.50 x10(3) [facility] Lymphocytes/100 WBC (Bld) 18.8 % 16.0 - 48. 0 % [facility] MCH (RBC) [Entitic mass] 30.5 pg 28. 8 - 32.2 pg [facility] MCHC (RBC) [Mass/Vol] 34.1 g/dL 33.0 - 36.0 g/dL [facility] MCV (RBC) [Entitic vol] 89.4 fL 80.0 - 94.0 fl [facility] MONO ABS 0.91 x10(3) High 0.30 - 0.80 x10(3) [facility] Monocytes/100 WBC (Bld) 8.9 % 4.3 - 11.2 % [facility] Neutrophil Ab 7.15 x10(3) High 1.40 - 6.50 x10(3) [facility] Neutrophils/100 WBC (Bld) 70.1 % 45.0 - 73. 0 % [facility] Platelet mean volume (Bld) [Entitic vol] 9.8 fL High 7.4 - 9.2 fl [facility] Platelets (Bld) [#/Vol] 346 X10(3) 150 - 450 X10(3) [facility] RBC (Bld) [#/Vol] 4.89 x10(6) 4.80 - 5.5 0 x10(6) [facility] WBC (Bld) [#/Vol] 10.2 x10(3) High 4.5 - 10.0 x10(3) [facility] CHEST-ONE VIEW ONLY - CXR1on 11-08-2022 CHEST-ONE VIEW ONLY - CXR1 [place] [address] Name: WILMAN HEARD Phys: No Physician : [id number] Age: 37 Sex: M Acct: [id number] Loc: ED Exam Date: 11/08/22 Status: REG ER Radiology No.: Unit Number: [id number] Exam # Type/Exam [id number] RAD / CHEST-ONE VIEW ONLY - CXR1 EXAMINATION: ONE XRAY VIEW OF THE CHEST11/08/2022 8:27 pm CHEST ONE VIEW AP/PA EXAM DESCRIPTION: COMPARISON: None available HISTORY: ORDERING SYSTEM PROVIDED HISTORY: TECHNOLOGIST PROVIDED HISTORY: Reason for Exam: Chest pain FINDINGS: Single AP radiograph of the chest was obtained. The lungs are clear without evidence of focal consolidation, mass, pleural effusion, or pneumothorax. The cardiomediastinal silhouette is unremarkable. The bones and soft tissues are unremarkable. IMPRESSION: No radiographic evidence of acute cardiopulmonary disease. Electronically signed By Keila Luciano MD 11/08/2022 10:36:04 PM EST Workstation ID : [id number] < > Reported By: KEILA LUCIANO M.D. Signed In Fluency By: KEILA LUCIANO M.D. << Signature on File>> Reported By: KEILA LUCIANO M.D. Signed By: KEILA LUCIANO M.D. Tests performed at: [address] [address] [facility] CNOVon 11-08-2022 CNOV Office Visit (UCUPNO) ---- WILMAN HEARD ([id number]) 1985 M Date Time Provider Department 11/08/22 7:30 PM EMELY DAVIS [facility] During your visit today, we recorded the following information about you: Temperature Pulse Respiration Blood pressure 98.2 degrees 114/minute 20/minute 163/116 Weight 109.3 kg Emely Davis PA-C 11/08/2022 8:00 PM Signed HPI: Wilman Doyle Félix is a 37 year old male who presents with Chest Pain (Sx 1 hour chest pain.with left arm tingling. /Pt stated he thinks its a pulled muscle but wasn't sure.pt stated his pcp just put him on b/p medication and he has taken double the dosage today). PAST MEDICAL HISTORY Diagnosis Date Hypertension There is no problem list on file for this patient. Current Outpatient Medications Medication Sig Dispense Refill losartan (COZAAR) 25 mg tablet No current facility-administer ed medications for this visit. Social History Tobacco Use Smoking status: Never Smokeless tobacco: Current Vaping Use Vaping Use: Never used Substance Use Topics Alcohol use: Yes Alcohol Use: Yes Tobacco Use: Never History reviewed. No pertinent family history. Review of Systems HENT: Negative. Negative for congestion and sore throat. Eyes: Negative. Respiratory: Negative for cough, shortness of breath and wheezing. Cardiovascular: Positive for chest pain. Gastrointestinal: Negative for diarrhea, nausea and vomiting. Genitourinary: Negative. Musculoskeletal: Negative. Skin: Negative. Neurological: Positive for tingling (left shoulder/arm). Endo/Heme/Allergies : Negative. Psychiatric/Behavio ral: Negative. All other systems reviewed and are negative. BP 163/116 Pulse 114 Temp 98.2 Resp 20 Wt 241 lb (109.3kg) SpO2 99% Physical Exam Vitals and nursing note reviewed. Constitutional: General: He is not in acute distress. Appearance: Normal appearance. He is normal weight. He is not ill-appearing or toxic-appearing. HENT: Head: Normocephalic and atraumatic. Right Ear: Tympanic membrane, ear canal and external ear normal. Left Ear: Tympanic membrane, ear canal and external ear normal. Nose: Nose normal. No congestion or rhinorrhea. Mouth/Throat: Mouth: Mucous membranes are moist. Pharynx: Oropharynx is clear. No oropharyngeal exudate or posterior oropharyngeal erythema. Eyes: Extraocular Movements: Extraocular movements intact. Conjunctiva/sclera: Conjunctivae normal. Pupils: Pupils are equal, round, and reactive to light. Cardiovascular: Rate and Rhythm: Normal rate and regular rhythm. Pulses: Normal pulses. Heart sounds: Normal heart sounds. Pulmonary: Effort: Pulmonary effort is normal. Breath sounds: Normal breath sounds. Abdominal: General: Abdomen is flat. Bowel sounds are normal. Palpations: Abdomen is soft. Musculoskeletal: General: Normal range of motion. Cervical back: Normal range of motion and neck supple. No tenderness. Lymphadenopathy: Cervical: No cervical adenopathy. Skin: General: Skin is warm and dry. Capillary Refill: Capillary refill takes less than 2 seconds. Neurological: General: No focal deficit present. Mental Status: He is alert and oriented to person, place, and time. Psychiatric: Mood and Affect: Mood normal. Behavior: Behavior normal. Clinical Impression ICD-10-CM 1. Chest pain, unspecified type R07.9 ECG COMPLETE PLAN: Patient comes in for evaluation of chest pain, left arm discomfort/numbness tingling. Started about an hour ago. He was moving a freezer at the time. There is no shortness of breath no lightheadedness no dizziness. No neck or jaw pain with this. Patient denies any cardiac history though he does have a history of high blood pressure. He recently doubled up on his hydrochlorothiazide . No history of diabetes, he does not smoke. There is a family history of cardiac disease with his mom and his dad, he is not sure exactly what or at what age. Patient came to [facility] [place] looking for an EKG. Physical exam is otherwise unremarkable. EKG is being obtained that we did talk about the potential for a non-STEMI and that he needs further evaluation going beyond what were able to do here at [facility] [place] with recommendations to going to the emergency department. EKG identified sinus rhythm with a rate 100, CT intervals 150, QRS duration 116, R axis of 54. There is no obvious ischemia though he does have a T wave abnormality inferior leads. There is no ectopy. There is no old to compare with. Sent to the ED for further evaluation, one of his coworkers will take him to Margot Davis PA-C This note was generated with voice recognition software and may contain errors, including spelling, grammar, syntax and misrecognition of what was dictated, that are not fully corrected. Emely Davis PA-C 11/08/2022 7:44 PM Signed Go to [employer] ER Referring Pro (more content not included)... Normal [facility] CT CHEST W IVCON PEon 2022 [facility] ECG COMPLETEon 11-08-2022 ECG COMPLETE Ventricular Rate : 100 BPM Atrial Rate : 100 BPM P-R Interval : 150 ms QRS Duration : 116 ms Q-T Interval : 358 ms QTC Calculation(Bazett) : 461 ms Calculated P Eucha : 55 degrees Calculated R Eucha : 54 degrees Calculated T Eucha : 10 degrees NORMAL SINUS RHYTHM INFERIOR T WAVE ABNORMALITY NO PREVIOUS ECGS AVAILABLE Confirmed by LEO JO MD ([id number]) on 11/17/2022 7:35:43 AM NAME : WILMAN HEARD PID : [id number] : 1985 Gender : Male Race : ORD : [id number] Procedure Date : Nov 08 2022 19:37:51 Edit Date : Nov 17 2022 07:35:44 Diagnosis: NORMAL SINUS RHYTHM INFERIOR T WAVE ABNORMALITY NO PREVIOUS ECGS AVAILABLE Confirmed by LEO JO MD ([id number]) on 11/17/2022 7:35:43 AM Test Reason : Location : 607 : U[facility] Overread By : ELO JO MD Edited By : LEO JO MD Referred By : EMELY DAVIS Acquired by : , Normal [facility] ELECTROCARDIOGRAMon 11-09-19 [place] [address] [facility] ELECTROCARDIOGRAM REPORT Patient: WILMAN HEARD Ordering: No Physician [id number] [birth year] 37 M Exam Date: 11/08/22 Report #: [id number] Status: DEP ER ED Test Reason : Blood Pressure : / mmHG Vent. Rate : 106 BPM Atrial Rate : 106 BPM P-R Int : 152 ms QRS Dur : 110 ms QT Int : 334 ms P-R-T Axes : 055 062 007 degrees QTc Int : 443 ms Sinus tachycardia Otherwise normal ECG No previous ECGs available Confirmed by LEO JO MD ([id number]) on 11/14/2022 5:00:12 PM Referred By: JULIAN DIEHL Confirmed By:LEO JO MD Signed in Assignment Editor 11/14/22 1701 LEO JO M.D. cc: << Signature on File>> Reported By: LEO JO M.D. Signed By: LEO JO M.D. Tests performed at: [address] [address] Normal [facility] Fibrin D-dimer FEU (PPP) [Ma ss/Vol]on 11-08-2022 Fibrin D-dimer FEU IA (Bld) [Mass/Vol] 1671 ng/mLDDU High <200 - 230 ng/mLDDU [facility] HIGH SENSITIVITY TROPONIN To n 11-08-2022 TROPONIN T(HIGHLY SENSITIVE) 6.56 ng/L 6 - 12 ng/L [facility] TROPONIN T(HIGHLY SENSITIVE) 6.78 ng/L 6 - 12 ng/L [facility] XR CHEST 1V FRONTALon 2022 [facility] hsTROP Ton 11-08-2022 hsTROP T 6.78 ng/L Normal 6-12 [facility] Comment on above: Result Comment: When assessing risk for acute coronary syndromes: In patients undergoing blood draw greater than 2 hours from symptom onset, with history of very low to moderate risk and non-ischemic ECG, an initial hs-Troponin T less than 12 ng/L AND a 1 hour delta hs-Troponin T less than 3 ng/L should be considered very low risk for 30 day MACE. Performed By: #### L 100.0010, L301.0080 #### ML - [facility] [address] [place] [address] Vital Signs Date Time Vital Sign Value Performing Clinician Faci lity 06-20-2024 14:39-0400 Body temperature 97.9 [degF] Dr. Hiren Ansari MD Work Phone: [facility] 06-20-2024 14:39-0400 Diastolic blood pressure 107 mm[Hg] Dr. Hiren Ansari MD Work Phone: [facility] 06-20-2024 14:39-0400 Heart rate 71 /min Dr. Hiren Ansari MD Work Phone: [facility] 06-20-2024 14:39-0400 Respiratory rate 17 /min Dr. Hiren Ansari MD Work Phone: [facility] 06-20-2024 14:39-0400 SaO2% (BldA) [Mass fraction] 99 % Dr. Hiren Ansari MD Work Phone: [facility] 06-20-2024 14:39-0400 Systolic blood pressure 136 mm[Hg] Dr. Hiren Ansari MD Work Phone: [facility] 06-20-2024 11:18-0400 Body height 185.[address] Hiren Ansari MD Work Phone: [facility] 06-20-2024 11:18-0400 Body mass index (BMI) [Ratio] 28.9 kg/m2 Dr. Hiren Ansari MD Work Phone: [facility] 06-20-2024 11:18-0400 Body weight 99.[address] Hiren Ansari MD Work Phone: [facility] 11-08-2022 19:34-0400 Body temperature 98.2 [degF] Emely Dyko PA-C Work Phone: [facility] 11-08-2022 19:34-0400 Body weight 109.32 kg Emely Dyko PA-C Work Phone: [facility] 11-08-2022 19:34-0400 Diastolic blood pressure 116 mm[Hg] Emely Dyko PA-C Work Phone: [facility] 11-08-2022 19:34-0400 Heart rate 114 /min Emely Dyko PA-C Work Phone: [facility] 11-08-2022 19:34-0400 Respiratory rate 20 /min Emely Dyko PA-C Work Phone: [facility] 11-08-2022 19:34-0400 SaO2% (BldA) [Mass fraction] 99 % Emely Dyko PA-C Work Phone: [facility] 11-08-2022 19:34-0400 Systolic blood pressure 163 mm[Hg] Emely Dyko PA-C Work Phone: [facility] Encounters Encounter Date Encounter Type Care Provider Facility Start: 07-25-2024 End: 07-25-2024 Emergency department patient visit NONE~[id number] NONE NONE NONE Facility:[facility] Start: 06-20-2024 End: 06-20-2024 Emergency department patient visit Dr. Hiren Ansari MD Work Phone: -Emergency Department Work Phone: Start: 06-17-2024 Encounter for genera l adult medical examination without abnormal findings Hiren Ansari [facility] Start: 06-13-2024 End: 06-13-[address] Hiren Ansari MD Work Phone: [facility] Work Phone: Start: 06-13-2024 End: 06-13-[address] Hiren Ansari MD -Laboratory, [place] Work Phone: Start: 06-13-2024 End: 06-13-2024 ambulatory Hiren Ansari Facility:[facility] Start: 11-08-2022 End: 11-09-2022 Emergency department patient visit JULIAN DIEHL Facility:[facility] Start: 11-08-2022 End: 11-08-2022 ambulatory EMELY DAVIS Facility:[facility] Start: 11-08-2022 End: 11-09-2022 Subsequent hospital visit by physician [facility] Comment on above: CHEST PAIN Start: 11-08-2022 End: 11-08-2022 Patient encounter procedure Emely Davis PA-C Work Phone: [facility] Comment on above: Chest pain, unspecif ied type (Primary Dx) Procedures Date Procedure Procedure Detail Performing Clinician Start: 06-20-2024 X-ray of chest, PA a nd lateral views Dr. Hiren Ansari MD Work Phone: Start: 11-08-2022 Ct thorax w/contrast material Sarah Guzmanervin Mercado DO Work Phone: Start: 11-08-2022 HIGH SENSITIVITY TRO PONIN T Provider [facility] Start: 11-08-2022 D-DIMER Julian huang DO Work Phone: Start: 11-08-2022 BASIC METABOLIC PNL Pro vider [facility] Start: 11-08-2022 CBC + DIFF Provider [facility] Start: 11-08-2022 HIGH SENSITIVITY TRO PONIN T Provider [facility] Start: 11-08-2022 Radiologic exam ches t single view Provider [facility] Start: 11-08-2022 Ecg routine ecg w/le ast 12 lds i&r only Emely Davis PA-C Work Phone: Plan of Treatment Date Care Activity Detail Author Start: 06-20-2024 [facility] Start: 06-20-2024 [facility] Start: 11-10-2022 Influenza vaccination INFLUENZA (#1) [facility] Start: 03-12-2022 DEPRESSION ASSESSMENT DEPRESSION ASSESSMENT [facility] Start: 2021 LIPID SCREEN LIPID SCREEN [facility] Start: 2005 Urine microalbumin profile DTAP,TDAP,TD (1 - Tdap) [facility] Start: 2004 HEPATITIS C SCREENING HEPATITIS C SCREENING [facility] Start: 2004 HIV SCREENING HIV SCREENING [facility] Start: 02-02-1987 COVID-19 VACCINE (#1) COVID-19 VACCINE (#1) [facility] Start: 1985 HEPATITIS B (1 of 3 - 3-dose series) HEPATITIS B (1 of 3 - 3-dose series) [facility] ECG COMPLETE ECG COMPLETE ECG Routine Chest pain, unspecified type 11/08/2022 7:37 PM EDT [facility] Work Phone: Patient referral [facility] Work Phone: Payers Date Payer Category Payer Self-pay 2021 Unknown [employer] PPO [id number] 2021-Present [phone] [address] [place] [address] PPO [id number] 2021 Unknown [id number] 1985 Unknown [id number] Unknown [id number] Unknown [id number] Unknown [id number] Social History Date Type Detail Facility Start: 11-08-2022 End: 06-20-2024 Tobacco smoking status NHIS Never smoked tobacco [facility] Start: 11-08-2022 Tobacco use and exposure User of smokeless tobacco [facility] Start: 11-08-2022 Alcohol intake Current drinke r of alcohol (finding) [facility] Start: 11-08-2022 History of Social function [facility] Start: 11-08-2022 Tobacco use panel [facility] Start: 1985 Sex Assigned At Not on file C [facility] Tobacco smoking status [facility] Tobacco smoking consumption unknown [facility] Start: 06-17-2024 End: 06-20-2024 Sex Male (finding) [facility] Start: 1985 Sex Assigned At Male W [facility] Mental Status Date Assessment Result Facility 06-20-2024 Cognitive function Voice/Name [facility] Work Phone: Clinical Notes 11-08-2022 to 06-20-2024 Note Date & Type Note Facility 06-20-2024 Discharge summary [facility] 06-20-2024 Discharge summary Note Date/Time June 20, 2024 2:30pm [facility] Medical Records Department [address] [place] [address] Emergency Department Summary 06/20/24 MR#: [id number] Acct: [id number] Name: WILMAN HEARD Yanira Rep #:[id number] : 1985 38 From: Garrick Ma DO PCP: Dr. Hiren Ansari MD Status:REG E R Location: ED HPI History of Present Illness Chief Complaint: Chest Pain Narrative Narrative: Patient is a 38-year-old male with past medical history of hypertension who presented to the emergency department the chief complaint of elevated blood pressure and chest pain. Patient states that about an hour ago he noted that his blood pressure was elevated and he had chest pain associated with this. He states that he checked his blood pressure this morning as he has been checking on a regular basis because he has a follow-up appointment coming up with his primary care physician in regards to his elevated blood pressure. He states that he was recently started on 5 mg of lisinopril for his elevated blood pressure. He states that originally he had hypertension but dropped about 40 pounds and his blood pressure normalized. He states that recently he did travelto [place] with his father and notes that they did not take any breaks they basically drove straight there and then on return home drove straight back. He states that he has no history of blood clots. He does endorse some shortness ofbreath with this. [facility] Medical History Hypertension Home Medications ?Medication ?Instructions ?Recorded ?Last Taken ?Type lisinopril 5 mg tablet 5 mg PO DAILY 06/20/2406/20 History Allergy/AdvReac Type Severity Reaction Status Date / Time No Known Allergies Allergy Verified 06/20/24 11:36 Social History Smoking Status: Never smoker ROS ROS ED ROS Narrative Constitutional: Denies fevers, chills, headaches Cardiovascular: Complains of chest pain as noted above denies palpitations Respiratory: Complains of some shortness of breath denies coughing wheezing Abdomen: Denies nausea vomit diarrhea Neurological: Denies numbness, weakness, tingling Musculoskeletal: Denies back pain Skin: Denies rashes or lesions EXAM Physical Exam Narrative Exam Narrative: General: Patient was lying in bed rest comfortably did not appear to be in acutedistress Head: Atraumatic, normocephalic Eyes: PERRL bilateral, EOMI bilateral, no conjunctival injection noted Neck: Soft, supple, trachea midline Cardiovascular: Regular rate and rhythm Respiratory: Clear to auscultation bilaterally Abdomen: Soft, nondistended no tenderness palpation Extremities: +5/5 strength noted in the bilateral upper and lower extremity, radial pulse +2/4 in the about upper extremities Neurological: Patient was following commands knew that he was at [facility] 2024 Skin: Warm, dry, intact no rashes or lesions noted Const Vital Signs: 06/20/24 11:18 06/20/24 11:32 06/20/24 11:41 Temperature 98.4 F Temperature Source Oral Pulse Rate 87 Respiratory Rate 16 Respiratory Effort Normal Blood Pressure 159/108 H Blood Pressure Mean 125 Pulse Ox 99 98 Oxygen Delivery Method Room Air Room Air 06/20/24 12:18 06/20/24 13:00 06/20/24 13:49 Temperature Temperature Source Pulse Rate 74 71 72 Respiratory Rate 16 16 16 Respiratory Effort Blood Pressure 144/91 H 135/100 H 135/100 H Blood Pressure Mean 108 111 111 Pulse Ox 98 97 98 Oxygen Delivery Method Room Air Room Air 06/20/24 14:00 Temperature Temperature Source Pulse Rate 94 Respiratory Rate 14 Respiratory Effort Blood Pressure 146/99 H Blood Pressure Mean 114 Pulse Ox 98 Oxygen Delivery Method MDM MDM MDM Narrative Medical decision making narrative: Patient is a 38-year-old male who presented to the emerged part with a chief complaint of chest pain. On the differential diagnose includes but limited to hypertension, hypertensive emergency, PE. Once workup is obtained reviewed he will be reevaluated. Patient's CBC was reviewed and showed no evidence leukocytosis white blood countwas normal at 9, hemoglobin 15.1, platelet count normal at 405. Patient D-dimernormal at 0.30, sodium normal 140, potassium of 4, creatinine normal at 0.80. Patient troponin was 7 with a delta troponin obtained RB 7. Patient's EKG reviewed showed sinus rhythm with a rate of 82 bpm. Patient's chest x-ray was reviewed and showed no active cardiopulmonary disease. On reevaluation the patient is feeling better he would like to go home at this point time. Patient's lisinopril will be increased from 5 mg to 10 mg daily andwas advised to keep a blood pressure log like he is doing. He is advised to call his primary care physician for a follow-up appointment and return with worsening symptoms or concerns. He is agreeable this plan as well as mother at bedside all question concerns answered he is discharged home in stable condition. Lab Data Labs: Laboratory Results - last 24 hr 06/20/24 06/20/24 11:30 13:16 WBC 9.0 RBC 4.85 Hgb 15.1 Hct 45.0 MCV 92.8 MCH 31.1 MCHC 33.6 RDW Std Deviation 40.3 RDW Coeff of Sammy 11.8 Plt Count 405 MPV 9.9 Immature Gran % (Auto) 0.300 Neut % (Auto) 73.1 H Lymph % (Auto) 18.2 L [place] % (Auto) 6.7 Eos % (Auto) 1.1 Baso % (Auto) 0.6 Absolute Neuts (auto) 6.6 Absolute Lymphs (auto) 1.64 Nucleated RBC % 0 D-Dimer Quant (PE/DVT) 0.30 Sodium 140 Potassium 4.0 Chloride 104 Carbon Dioxide 21.7 Anion Gap 14 BUN 9 Creatinine 0.80 Estim Creat Clear Calc 156.84 Est GFR (MDRD) Non-Af 117 BUN/Creatinine Ratio 11.1 Glucose 112 H Calcium 9.9 Troponin T High Sens 7 Troponin T Hi Sens 2 Hr 7 Radiography Diagnostic Testing: Clinical Impression(s) from Imaging Studies Chest X-Ray 06/20/24 11:41 IMPRESSION: No active cardiopulmonary disease. Sign report. Reading Location: [place] [address] Discharge Plan Triage Chief Complaint: Chest Pain ED Provider: Garrick Ma Dx/Rx/DC Orders Clinical Impression: Chest pain, Hypertension Prescriptions: No Action lisinopril 5 mg tablet 5 mg PO DAILY Primary Care Provider: Hiren Ansari Referrals: Hiren Ansari MD [Primary Care Provider] - Activity Restrictions/Additional Instructions: Increase your lisinopril dose from 5 mg to 10 mg daily. Keep your blood pressure log as you are already doing. Return for worsening symptoms or concerns as we discussed here. Your workup here today was largely unremarkable. Print Language: Haitian Disposition Disposition: Home, Self Care What to do if you have Problems For any increased pain, shortness of breath, bleeding, nausea or vomiting, chestpain, or any unexpected problems, contact your Primary Care Provider. Call [facility] ([phone]) or report to the closest Emergency Room. Call 911 if necessary. 06/20/24 1430 <Electronically signed by Garrick Ma DO> Cosigner Signature (if applicable): CC: Dr. Hiren Ansari MD ~ Signed [facility] Work Phone: 1(855) 930-899904-11-2025 Radiology Diagnostic study note [facility] Imaging Services [address] [place] [address] Chest PA and Lateral MR#: [id number] Acct: [id number] Name: FÉLIXWILMAN D Rep #: [id number] : 1985 M 38 From: Meredith Bedolla MD PCP: Dr. Hiren Ansari MD Status: PRE E R Study:Chest PA and Lateral Date of Exam: 06/20/24 Exam# [id number] Ordering Dr: Daniel Ma DO PROCEDURE: CHEST PA AND LATERAL 06/20/2024 REASON FOR EXAM: CHEST PAIN. ELEVATED BLOOD PRESSURE. TECHNIQUE: Frontal and lateral views of the chest. COMPARISON: No relevant prior. FINDINGS: Lungs: Lungs clear of pneumonia and congestion. Old healed granulomatous changes. Pleura: No pleural effusions, thickening, or pneumothorax. Heart: Normal in size and configuration. Mediastinum/Rylee: Unremarkable. Great vessels: Unremarkable. Bones/soft tissues: Unremarkable. Cardiac monitoring leads overlie the chest wall. RAD/Chest PA and Lateral IMPRESSION: No active cardiopulmonary disease. Sign report. Reading Location: [place] [address] CC: Dr. Hiren Ansari MD; Dr. Garrick Ma DO ~ Health Underwriter: Signed [facility]04-11-2025 Hospital Discharge instructions Additional Instructions Increase your lisinopril dose from 5 mg to 10 mg daily. Keep your blood pressure log as you are already doing. Return for worsening symptoms or concerns as we discussed here. Your workup here today was largely unremarkable.[facility] Work Phone: 1(307) 403-426708-30-2023 NoteHNO ID: [id number] Author: Emely Davis PA-C Service: ? Author Type: Physician Cow Washer Type: Progress Notes Filed: 11/08/2022 8:00 PM Note Text: HPI: Wilman Heard is a 37 year old male who presents with Chest Pain (Sx 1 hour chest pain.with left arm tingling. /Pt stated he thinks its a pulled muscle but wasn't sure.pt stated his pcp just put him on b/p medication and he has taken double the dosage today). PAST MEDICAL HISTORY Diagnosis Date Hypertension There is no problem list on file for this patient. Current Outpatient Medications Medication Sig Dispense Refill losartan (COZAAR) 25 mg tablet No current facility-administered medications for this visit. Social History Tobacco Use Smoking status: Never Smokeless tobacco: Current Vaping Use Vaping Use: Never used Substance Use Topics Alcohol use: Yes Alcohol Use: Yes Tobacco Use: Never History reviewed. No pertinent family history. Review of Systems HENT: Negative. Negative for congestion and sore throat. Eyes: Negative. Respiratory: Negative for cough, shortness of breath and wheezing. Cardiovascular: Positive for chest pain. Gastrointestinal: Negative for diarrhea, nausea and vomiting. Genitourinary: Negative. Musculoskeletal: Negative. Skin: Negative. Neurological: Positive for tingling (left shoulder/arm). Endo/Heme/Allergies: Negative. Psychiatric/Behavioral: Negative. All other systems reviewed and are negative. BP 163/116 Pulse 114 Temp 98.2 Resp 20 Wt 241 lb (109.3kg) SpO2 99% Physical Exam Vitals and nursing note reviewed. Constitutional: General: He is not in acute distress. Appearance: Normal appearance. He is normal weight. He is not ill-appearing or toxic-appearing. HENT: Head: Normocephalic and atraumatic. Right Ear: Tympanic membrane, ear canal and external ear normal. Left Ear: Tympanic membrane, ear canal and external ear normal. Nose: Nose normal. No congestion or rhinorrhea. Mouth/Throat: Mouth: Mucous membranes are moist. Pharynx: Oropharynx is clear. No oropharyngeal exudate or posterior oropharyngeal erythema. Eyes: Extraocular Movements: Extraocular movements intact. Conjunctiva/sclera: Conjunctivae normal. Pupils: Pupils are equal, round, and reactive to light. Cardiovascular: Rate and Rhythm: Normal rate and regular rhythm. Pulses: Normal pulses. Heart sounds: Normal heart sounds. Pulmonary: Effort: Pulmonary effort is normal. Breath sounds: Normal breath sounds. Abdominal: General: Abdomen is flat. Bowel sounds are normal. Palpations: Abdomen is soft. Musculoskeletal: General: Normal range of motion. Cervical back: Normal range of motion and neck supple. No tenderness. Lymphadenopathy: Cervical: No cervical adenopathy. Skin: General: Skin is warm and dry. Capillary Refill: Capillary refill takes less than 2 seconds. Neurological: General: No focal deficit present. Mental Status: He is alert and oriented to person, place, and time. Psychiatric: Mood and Affect: Mood normal. Behavior: Behavior normal. Clinical Impression ICD-10-CM 1. Chest pain, unspecified type R07.9 ECG COMPLETE PLAN: Patient comes in for evaluation of chest pain, left arm discomfort/numbness tingling. Started about an hour ago. He was moving a freezer at the time. There is no shortness of breath no lightheadedness no dizziness. No neck or jaw pain with this. Patient denies any cardiac history though he does have a history of high blood pressure. He recently doubled up on his hydrochlorothiazide. No history of diabetes, he does not smoke. There is a family history of cardiac disease with his mom and his dad, he is not sure exactly what or at what age. Patient came to [facility] looking for an EKG. Physical exam is otherwise unremarkable. EKG is being obtained that we did talk about the potential for a non-STEMI and that he needs further evaluation going beyond what were able to do here at [facility] [place] with recommendations to going to the emergency department. EKG identified sinus rhythm with a rate 100, CT intervals 150, QRS duration 116, R axis of 54. There is no obvious ischemia though he does have a T wave abnormality inferior leads. There is no ectopy. There is no old to compare with. Sent to the ED for further evaluation, one of his coworkers will take him to [place] Emely Davis PA-C This note was generated with voice recognition software and may contain errors, including spelling, grammar, syntax and misrecognition of what was dictated, that are not fully corrected.[facility]08-30-2023 Instructions* Patient Instructions* Emely Davis PA-C - 11/08/2022 7:44 PM EDT Go to [place] documented in this encounterC[facility] History of Present illness Narrative* Emely Davis PA-C - 11/08/2022 7:42 PM EDT HPI: Wilman Heard is a 37 year old male who presents with Chest Pain (Sx 1 hour chest pain.withleft arm tingling. /Pt stated he thinks its a pulled muscle but wasn't sure.pt stated his pcp just put him on b/p medication and he has taken double the dosage today). PAST MEDICAL HISTORY Diagnosis Date Hypertension There is no problem list on file for this patient. Current Outpatient Medications Medication Sig Dispense Refill losartan (COZAAR) 25 mg tablet No current facility-administered medications for this visit. Social History Tobacco Use Smoking status: Never Smokeless tobacco: Current Vaping Use Vaping Use: Never used Substance Use Topics Alcohol use: Yes Alcohol Use: Yes Tobacco Use: Never History reviewed. No pertinent family history. Review of Systems HENT: Negative. Negative for congestion and sore throat. Eyes: Negative. Respiratory: Negative for cough, shortness of breath and wheezing. Cardiovascular: Positive for chest pain. Gastrointestinal: Negative for diarrhea, nausea and vomiting. Genitourinary: Negative. Musculoskeletal: Negative. Skin: Negative. Neurological: Positive for tingling (left shoulder/arm). Endo/Heme/Allergies: Negative. Psychiatric/Behavioral: Negative. All other systems reviewed and are negative. BP 163/116 Pulse 114 Temp 98.2 Resp 20 Wt 241 lb (109.3kg) SpO2 99% Physical Exam Vitals and nursing note reviewed. Constitutional: General: He is not in acute distress. Appearance: Normal appearance. He is normal weight. He is not ill-appearing or toxic-appearing. HENT: Head: Normocephalic and atraumatic. Right Ear: Tympanic membrane, ear canal and external ear normal. Left Ear: Tympanic membrane, ear canal and external ear normal. Nose: Nose normal. No congestion or rhinorrhea. Mouth/Throat: Mouth: Mucous membranes are moist. Pharynx: Oropharynx is clear. No oropharyngeal exudate or posterior oropharyngeal erythema. Eyes: Extraocular Movements: Extraocular movements intact. Conjunctiva/sclera: Conjunctivae normal. Pupils: Pupils are equal, round, and reactive to light. Cardiovascular: Rate and Rhythm: Normal rate and regular rhythm. Pulses: Normal pulses. Heart sounds: Normal heart sounds. Pulmonary: Effort: Pulmonary effort is normal. Breath sounds: Normal breath sounds. Abdominal: General: Abdomen is flat. Bowel sounds are normal. Palpations: Abdomen is soft. Musculoskeletal: General: Normal range of motion. Cervical back: Normal range of motion and neck supple. No tenderness. Lymphadenopathy: Cervical: No cervical adenopathy. Skin: General: Skin is warm and dry. Capillary Refill: Capillary refill takes less than 2 seconds. Neurological: General: No focal deficit present. Mental Status: He is alert and oriented to person, place, and time. Psychiatric: Mood and Affect: Mood normal. Behavior: Behavior normal. Clinical Impression ICD-10-CM 1. Chest pain, unspecified type R07.9 ECG COMPLETE PLAN: Patient comes in for evaluation of chest pain, left arm discomfort/numbness tingling. Started aboutan hour ago. He was moving a freezer at the time. There is no shortness of breath no lightheadedness no dizziness. No neck or jaw pain with this. Patient denies any cardiac history though he does have a history of high blood pressure. He recently doubled up on his hydrochlorothiazide. No history ofdiabetes, he does not smoke. There is a family history of cardiac disease with his mom and his dad,he is not sure exactly what or at what age. Patient came to [facility] [place] looking for an EKG. Physical exam is otherwise unremarkable. EKG is being obtained that we did talk about the potentialfor a non-STEMI and that he needs further evaluation going beyond what were able to do here at [facility] [place] with recommendations to going to the emergency department. EKG identified sinus rhythm with a rate 100, CT intervals 150, QRS duration 116, R axis of 54. There is no obvious ischemia though he does have a T wave abnormality inferior leads. There is no ectopy. There is no old to compare with. Sent to the ED for further evaluation, one of his coworkers will take him to Margot Davis PA-C This note was generated with voice recognition software and may contain errors, including spelling,grammar, syntax and misrecognition of what was dictated, that are not fully corrected. documented in this encounterCleveland Clinic Avon HospitalEvalubayhealth medical center note* Diagnosis Chest pain, unspecified type- Primary documented in this encounter [facility] noteNo assessment information availableWSelect Medical [facility] Work Phone: Reason for referral (narrative)* Outpatient Procedure (Routine) - Closed Specialty Diagnoses / Procedures Referred By Contac t Referred To [facility] Diagnoses Chest pain, unspecified type Procedures ECG COMPLETE ECG ROUTINE ECG W/LEAST 12 LDS W/I&R Emely Davis PA-C [address] [place] [address] [facility] [place] [address] Referral ID Status Reason Start Date Expiration Date V isits Requested Visits Authorized [id number] Closed Auto-Generate d Referral 11/08/2022 11/08/2023 1 1 [facility] for referral (narrative)No reason for referral information availableWSelect Medical [facility] Rehabilitation Hospital Work Phone: Summary Purpose Family History No Family History Records FoundNo Family History Records FoundNo Family History Records FoundNo Family History Records Found Advance Directives No Advanced Directives Records Found Advance Directive Response Recorded Date/ Time Living Will No June 20, 2024 11:32am Do you have a Healthcare Power of Substance Abuse Prevention Coordinator? No June 20, 2024 11:32am Chief Complaint and Reason for Visit Chief Complaint Admit Date FASTING June 13, 2024 11:1 5am Chief Complaint Admit Date FASTING June 13, 2024 11:1 5am chest pain June 20, 2024 11: 18am Additional Source Comments Source Comments (unrecognize d section and content) In the event this informatio n is protected by the Federal Confidentiality of Alcohol and Drug Abuse Patient Records regulations: The Federal rules restrict any use of the information to criminally investigate or prosecute any alcohol or drug abuse patient.[facility] HospitalIn the event this information is protected by the Federal Confidentiality of Alcohol and Drug Abuse Patient Records regulations: The Federal rules restrict any use of the information to criminally investigate or prosecute any alcohol or drug abuse patient.[facility] Reason for Visit (unrecogniz ed section and content) Reason Comments Chest Pain Sx 1 hour chest pain .with left arm tingling. Pt stated he thinks its a pulled muscle but wasn't sure.pt stated his pcp just put him on b/p medication and he has taken double the dosage today (unrecognized sect ion and content) No Status Records FoundNo Status Records FoundNo Status Records FoundNo Status Records Found INFORMATION SOURCE (unrecogn ized section and content) DATE CREATED AUTHOR 11/18/2022 [facility] DATE CREATED AUTHOR AUTHOR'S ORGANIZ ATION 12/01/2022 [facility] DATE CREATED AUTHOR AUTHOR'S ORGANIZ ATION 06/26/2024 [facility] DATE CREATED AUTHOR AUTHOR'S ORGANIZ ATION 08/06/2024 [facility] ospital Care Teams (unrecognized sec tion and content) Team Status: Active Member Role Status Dates Dr. Hiren Ansari MD Primary Care Provider Active Team Status: Inactive Member Role Status Dates Dr. Hiren Ansari MD Primary Care Provider Active Start: June 13, 2024 End: June 13, 2024 Dr. Hiren Ansari MD Attending Provider Active Start: June 13, 2024 End: June 13, 2024 Dr. Hiren Ansari MD Referring Provider Active Start: June 13, 2024 End: June 13, 2024 Team Status: Inactive Member Role Status Dates Dr. Hiren Ansari MD Primary Care Provider Active Start: June 20, 2024 End: June 20, 2024 Dr. Garrick Ma DO Emergency Provider Active Start: June 20, 2024 End: June 20, 2024 Goals (unrecognized section and content) Goals may be documented in a n alternate sectionGoals may be documented in an alternate section FOR RECORDS PERTAINING TO PATIENTS WHO ARE OR HAVE BEEN ENROLLED IN A CHEMICAL DEPENDENCY/SUBSTANCEABUSE PROGRAM, SOME INFORMATION MAY BE OMITTED. This clinical summary was aggregated from multiple sources. Caution should be exercised in using it in the provision of clinical care. This summary normalizes information from multiple sources, and as a consequence, information in this document may materially change the coding, format and clinical context of patient data. In addition, data may be omitted in some cases. CLINICAL DECISIONS SHOULD BE BASED ON THE PRIMARY CLINICAL RECORDS. [employer] provides no warranty or guarantee of the accuracy or completeness of information in this document.
--- OUTSIDE RECORDS SUMMARY | 2024-10-17 06:24 | XMS RPT_ITS | CCD ---
Author Organization [facility] Team Providers Care Cigar Bander Name Role Phone Unavailable Primary Care Provider UnavailEMELY Bradford Referring Unavailable JULIAN DIEHL Consulting Unavailable Coty FERRER, Dr. Maradiaga Primary Care Provider [phone] Coty FERRER, Dr. Maradiaga Attending Provider Coty FERRER, Dr. Maradiaga Referring Provider Dr. Garrick Ma DO Emergency Provider Hiren Ansari Primary Care Unavailable Hiren Ansari Attending Unavailable Hiren Ansari Referring Unavailable Hiren Ansari Primary Care Unavailable Garrick Ma Attending Unavailable NONE NONE, NONE~[phone] NONE Primary Care Unavailable MAXWELL DO~[id number], MAXWELL MELVIN K Attending Unavailable MAXWELL DO~[phone], MAXWELL MELVIN K Admitting Unavailable NONE NONE, NONE~[phone] NONE Consulting Unavailable SULMA, Consulting Unavailable ROSA KELLY APRN Consulting Unavail able ROSA KELLY APRN Consulting Unavail able Allergies Allergy Classification Reported Allergen(s) Allergy Type Date of Onset Reaction(s) Facility (1 source) MISC-ENV; Translations: [MISC-ENV] Propensity to adverse reactions (disorder) [facility] Repository Medications Current Medications Medication Drug Class(es) [...] 12 Lead EKGon 06-20-2024 12 Lead EKG [facility] Cardiovascular Services [address] [place] [address] 12 Lead EKG 06/20/24 1123 MR#: [id number] Acct: [id number] Name: WILMAN HEARD Yanira Rep #: [id number] : 1985 38 From: Jaden Porter MD [...] rhythm Normal ECG Confirmed by Jaden Porter ([id number]), image editor MANUEL SPEARS ([id number]) on 06/23/2024 6:51:01 AM Referred By: Confirmed By: Jaden Porter 06/23/24 0651 Date Jaden Porter MD CC: Dr. Hiren Ansari MD; Dr. Garrick Ma DO Signed Normal [facility] Absolute neutrophil countOrd ered By: Garrick Ma on 06-20-2024 Neutrophils (Bld) [#/Vol] 6.6 10*3/uL 2.0-7.7 [facility] Anion gap in Serum or Plasma Ordered By: Garrick Ma on 06-20-2024 Anion gap [Moles/Vol] 14 mmol/L 07-24 [facility] BUN/creatinine ratioOrdered By: Garrick Ma on 06-20-2024 Urea nitrogen/Creatinine [Mass ratio] 11.1 mg/mg 12-29 [facility] Basic Metabolic Profile (BMP )on 06-20-2024 BUN/CRE 11.1 RATIO Normal 12-29 [facility] Comment on above: Performed By: #### L 500.2500, L100.0100, L300.8000, L501.4021 #### [facility] [address] [place], [address] Calcium [Mass/Vol] 9.9 mg/dL Normal 7.6-11.0 [facility] Comment on above: Performed By: #### L 500.2500, L100.0100, L300.8000, L501.4021 #### [facility] [address] [place], [address] Chloride [Moles/Vol] 104 mmol/L Normal 98-108 [facility] Comment on above: Performed By: #### L 500.2500, L100.0100, L300.8000, L501.4021 #### [facility] [address] [place], [address] CO2 [Moles/Vol] 21.7 mmol/L Normal 21.0-32.0 [facility] Comment on above: Performed By: #### L 500.2500, L100.0100, L300.8000, L501.4021 #### [facility] [address] [place], [address] Creatinine [Mass/Vol] 0.80 mg/dL Normal 0.70-1.20 [facility] Comment on above: Performed By: #### L 500.2500, L100.0100, L300.8000, L501.4021 #### [facility] [address] [place], [address] ECRCL 156.84 ml/min Normal 50-250 [facility] Comment on above: Performed By: #### L 500.2500, L100.0100, L300.8000, L501.4021 #### [facility] [address] [place], [address] GAP 14 Normal 5-15 [facility] Comment on above: Performed By: #### L 500.2500, L100.0100, L300.8000, L501.4021 #### [facility] [address] [place], [address] GFR/1.73 sq M.predicted among non-blacks MDRD (S/P/Bld) [Vol rate/Area] 117 mL/min/{1.73_m2} Normal >60 [facility] Comment on above: Result Comment: mL/m in/1.73m2 CKD-EPI Creatinine Equation (2020) Performed By: #### L 500.2500, L100.0100, L300.8000, L501.4021 #### [facility] [address] [place], [address] Glucose [Mass/Vol] 112 mg/dL High 70-99 [facility] Comment on above: Performed By: #### L 500.2500, L100.0100, L300.8000, L501.4021 #### [facility] [address] [place], [address] Potassium [Moles/Vol] 4.0 mmol/L Normal 3.3-5.1 [facility] Comment on above: Performed By: #### L 500.2500, L100.0100, L300.8000, L501.4021 #### [facility] [address] [place], [address] Sodium [Moles/Vol] 140 mmol/L Normal 133-145 [facility] Comment on above: Performed By: #### L 500.2500, L100.0100, L300.8000, L501.4021 #### [facility] [address] [place], [address] Urea nitrogen [Mass/Vol] 9 mg/dL Normal 4-19 [facility] Comment on above: Performed By: #### L 500.2500, L100.0100, L300.8000, L501.4021 #### [facility] [address] [place], [address] Basophil percentageOrdered B y: Garrick Anil on 06-20-2024 Basophils/100 WBC (Bld) 0.6 % 0-[address] [facility] CBC W/Diff, Automatedon 06-10 Absolute Lymph 1.64 X10 3/uL Normal 0.83-4.51 [facility] Comment on above: Performed By: #### L 500.2500, L100.0100, L300.8000, L501.4021 #### [facility] [address] [place], [address] Absolute Neut 6.6 X10 3/uL Normal 2.0-7.7 [facility] Comment on above: Performed By: #### L 500.2500, L100.0100, L300.8000, L501.4021 #### [facility] [address] [place], [address] Basophils/100 WBC (Bld) 0.6 % Normal 0-[address] [facility] Comment on above: Performed By: #### L 500.2500, L100.0100, L300.8000, L501.4021 #### [facility] [address] [place], [address] Eosinophils/100 WBC (Bld) 1.1 % Normal 0-5 [facility] Comment on above: Performed By: #### L 500.2500, L100.0100, L300.8000, L501.4021 #### [facility] [address] [place], [address] Erythrocyte distribution width (RBC) [Ratio] 11.8 % Normal 11.6-14.6 [facility] Comment on above: Performed By: #### L 500.2500, L100.0100, L300.8000, L501.4021 #### [facility] [address] [place], [address] Hematocrit (Bld) [Volume fraction] 45.0 % Normal 40-54 [facility] Comment on above: Performed By: #### L 500.2500, L100.0100, L300.8000, L501.4021 #### [facility] [address] [place], [address] Hemoglobin (Bld) [Mass/Vol] 15.1 g/dL Normal 13.0-16.5 [facility] Comment on above: Performed By: #### L 500.2500, L100.0100, L300.8000, L501.4021 #### [facility] [address] [place], [address] IG% 0.300 Normal 0.0-0.9 [facility] Comment on above: Result Comment: IG% - Immature Granulocytes (promyelocytes, myelocytes and metamyelocytes) > 1% indicates that a LEFT SHIFT is Present. Performed By: #### L 500.2500, L100.0100, L300.8000, L501.4021 #### [facility] [address] [place], [address] Lymphocytes/100 WBC (Bld) 18.2 % Low 19-41 [facility] Comment on above: Performed By: #### L 500.2500, L100.0100, L300.8000, L501.4021 #### [facility] [address] [place], [address] MCH (RBC) [Entitic mass] 31.1 pg Normal 27.0-32.0 [facility] Comment on above: Performed By: #### L 500.2500, L100.0100, L300.8000, L501.4021 #### [facility] [address] [place], [address] MCHC (RBC) [Mass/Vol] 33.6 g/dL Normal 32-36 [facility] Comment on above: Performed By: #### L 500.2500, L100.0100, L300.8000, L501.4021 #### [facility] [address] [place], [address] MCV (RBC) [Entitic vol] 92.8 fL Normal 80-[address] [facility] Comment on above: Performed By: #### L 500.2500, L100.0100, L300.8000, L501.4021 #### [facility] [address] [place], [address] Monocytes/100 WBC (Bld) 6.7 % Normal 0-[address] [facility] Comment on above: Performed By: #### L 500.2500, L100.0100, L300.8000, L501.4021 #### [facility] [address] [place], [address] Neutrophils/100 WBC (Bld) 73.1 % High 47-70 [facility] Comment on above: Performed By: #### L 500.2500, L100.0100, L300.8000, L501.4021 #### [facility] [address] [place], [address] Nucleated RBC (Bld) [#/Vol] 0 10*3/uL Normal 0-5 [facility] Comment on above: Performed By: #### L 500.2500, L100.0100, L300.8000, L501.4021 #### [facility] [address] [place], [address] Platelet mean volume (Bld) [Entitic vol] 9.9 fL Normal 6.2-12.0 [facility] Comment on above: Performed By: #### L 500.2500, L100.0100, L300.8000, L501.4021 #### [facility] [address] [place], [address] Platelets (Bld) [#/Vol] 405 10*3/uL Normal 150-450 [facility] Comment on above: Performed By: #### L 500.2500, L100.0100, L300.8000, L501.4021 #### [facility] [address] [place], [address] RBC (Bld) [#/Vol] 4.85 10*6/uL Normal 4.6-6.2 [facility] Comment on above: Performed By: #### L 500.2500, L100.0100, L300.8000, L501.4021 #### [facility] [address] [place], [address] RDW SD 40.3 fl Normal 35.1-43.9 [facility] Comment on above: Performed By: #### L 500.2500, L100.0100, L300.8000, L501.4021 #### [facility] [address] [place], [address] WBC (Bld) [#/Vol] 9.0 10*3/uL Normal 4.4-11.0 [facility] Comment on above: Performed By: #### L 500.2500, L100.0100, L300.8000, L501.4021 #### [facility] [address] [place], [address] Carbon dioxide, total [Moles /volume] in Central venous bloodOrdered By: Garrick Ma on 06-20-2024 CO2 [Moles/Vol] 21.7 mmol/L 21.0-32.0 [facility] Chest PA and Lateralon 06-20 Chest PA and Lateral [facility] Imaging Services [address] [place] [address] Chest PA and Lateral MR#: [id number] Acct: [id number] Name: WILMAN HEARD Rep #: [id number] : 1985 M 38 From: James Bedolla MD PCP: Dr. Hiren Ansari MD Status: PRE ER Study: Chest PA and Lateral Date of Exam: 06/20/24 Exam# [id number] Ordering Dr: Garrick Ma DO PROCEDURE: CHEST [...] active cardiopulmonary disease. Sign report. Reading Location: [place] [address] CC: Dr. Hiren Ansari MD; Dr. Garrick Ma DO Optician Apprentice: Signed Normal [facility] Chloride assayOrdered By: Negro Ma on 06-20-2024 Chloride [Moles/Vol] 104 mmol/L 98-108 [facility] D-Dimer Quantitative (DVT/PE )on 06-20-2024 D-DIMER QUANT 0.30 FEU/ug/m Normal 0.27-0.49 [facility] Comment on above: Result Comment: NORM AL D-Dimer level (<0.50) indicates no DVT or PE. Performed By: #### L 500.2500, L100.0100, L300.8000, L501.4021 #### [facility] [address] [facility] [address] [place], [address] D-dimer measurement for deep venous thrombosisOrdered By: Garrick Ma on 06-20-2024 D-Dimer Quantitative (PE/DVT) 0.30 FEU/ug/m 0.27-0.49 [facility] Comment on above: NORMAL D-Dimer level (<0.50) indicates no DVT or PE. Emergency Department Summary on 06-20-[address] [facility] Records Department [address] [facility] [place] [address] Emergency Department Summary 06/20/24 MR#: [id number] Acct: [id number] Name: WILMAN HEARD Rep #: [id number] : 1985 38 From: Garrick Ma DO PCP: Dr. Hiren Ansari MD Status:REG ER Location: ED HPI History [...] states that recently he did travel to [place] with his father and notes that they did not take any breaks they basically drove straight there and then on return home drove straight back. He states that he has no history of blood clots. He does endorse some shortness of breath with this. [facility] Medical History Hypertension Home Medications ???Medication ???Instructions [...] following commands knew that he was at [facility] years 2024 Skin: Warm, dry, intact [...] like he (more content not included)... Normal [facility] Eosinophil percentageOrdered By: Garrick Ma on 06-20-2024 Eosinophils/100 WBC (Bld) 1.1 % 0-5 [facility] Erythrocyte distribution wid th (RBC) [Ratio]Ordered By: Garrick Ma on 06-20-2024 Erythrocyte distribution width (RBC) [Entitic vol] 40.3 fL 35.1-43.9 [facility] Erythrocyte distribution wid th ratioOrdered By: Garrick Ma on 06-20-2024 Erythrocyte distribution width (RBC) [Ratio] 11.8 % 11.6-14.6 [facility] Estimation of creatinine valarie aranceOrdered By: Garrick Ma on 06-20-2024 Estimated Creatinine Clearance Calc 156.84 ml/min 50-250 [facility] GFR/1.73 sq M.predicted ric g non-blacks MDRD (S/P/Bld) [Vol rate/Area]Ordered By: Garrick Ma on 06-20-2024 Estimated GFR (MDRD) Non-Af Amer 117 >60 [facility] Comment on above: mL/min/1.73m2 CKD-EP I Creatinine Equation (2020) Hematocrit Auto (Bld) [Volum e fraction]Ordered By: Garrick Ma on 06-20-2024 Hematocrit (Bld) [Volume fraction] 45.0 % 40-54 [facility] Hemoglobin measurementOrdere d By: Garrick Ma on 06-20-2024 Hemoglobin (Bld) [Mass/Vol] 15.1 g/dL 13.0-16.5 [facility] Immature granulocytes/100 WB C Auto (Bld)Ordered By: Garrick Ma on 06-20-2024 Immature granulocytes/100 WBC (Bld) 0.300 % 0.0-0.9 [facility] Comment on above: IG% - Immature Granu locytes (promyelocytes, myelocytes and metamyelocytes) > 1% indicates that a LEFT SHIFT is Present. L499.0042on 06-20-2024 Trop T High Sen 7 ng/L Normal <=22 [facility] Comment on above: Performed By: #### L 499.0042 #### [facility] [address] [place], [address] L499.0043on 06-20-2024 Trop T High Sen Normal <=22 [facility] Comment on above: Result Comment: Taya rose via OM: Ordered Performed By: #### L 499.0043 #### [facility] [address] [place], [address] L501.4021on 06-20-2024 Trop T High Sen 7 ng/L Normal <=22 [facility] Comment on above: Performed By: #### L 500.4100, L500.2500 #### [facility] [address] [place], [address] Lymphocytes Auto (Unsp spec) [#/Vol]Ordered By: Garrick Ma on 06-20-2024 Lymphocytes (Bld) [#/Vol] 1.64 10*3/uL 0.83-4.5 1 [facility] Lymphocytes/100 WBC Auto (Un sp spec)Ordered By: Garrick Ma on 06-20-2024 Lymphocytes/100 WBC (Bld) 18.2 % Low 19-41 [facility] MCV (mean corpuscular volume ) determinationOrdered By: Garrick Ma on 06-20-2024 MCV (RBC) [Entitic vol] 92.8 fL 80-[address] [facility] Mean corpuscular hemoglobin (MCH) determinationOrdered By: Garirck Ma on 06-20-2024 MCH (RBC) [Entitic mass] 31.1 pg 27.0-32.0 [facility] Mean corpuscular hemoglobin concentration (MCHC) determinationOrdered By: Garrick Ma on 06-20-2024 MCHC (RBC) [Mass/Vol] 33.6 g/dL 32-36 [facility] Mean platelet volume determi nationOrdered By: Garrick Ma on 06-20-2024 Platelet mean volume (Bld) [Entitic vol] 9.9 fL 6.2-12.0 [facility] Monocyte percentageOrdered B y: Garrick Ma on 06-20-2024 Monocytes/100 WBC (Bld) 6.7 % 0-[address] [facility] Neutrophil percentageOrdered By: Garrick Ma on 06-20-2024 Neutrophils/100 WBC (Bld) 73.1 % High 47-70 [facility] Nucleated red blood cell per centageOrdered By: Garrick Ma on 06-20-2024 Nucleated RBC/100 WBC (Bld) [Ratio] 0 % 0-5 [facility] Platelet countOrdered By: Negro Ma on 06-20-2024 Platelets (Bld) [#/Vol] 405 10*3/uL 150-450 [facility] Potassium (Unsp spec) [Mass/ Vol]Ordered By: Garrick Ma on 06-20-2024 Potassium [Moles/Vol] 4.0 mmol/L 3.3-5.1 [facility] RBC Auto (Bld) [#/Vol]Ordere d By: Garrick Ma on 06-20-2024 RBC (Bld) [#/Vol] 4.85 10*6/uL 4.6-6.2 [facility] Serum creatinine measurement (mass/volume)Ordered By: Garrick Ma on 06-20-2024 Creatinine [Mass/Vol] 0.80 mg/dL 0.70-1.20 [facility] Serum glucose measurement (m ass/volume)Ordered By: Garrick Ma on 06-20-2024 Glucose [Mass/Vol] 112 mg/dL High 70-99 [facility] Serum or plasma calcium cecilia urement (mass/volume)Ordered By: Garrick Ma on 06-20-2024 Calcium [Mass/Vol] 9.9 mg/dL 7.6-11.0 [facility] Serum or plasma urea nitroge n measurement (mass/volume)Ordered By: Garrick Ma on 06-20-2024 Urea nitrogen [Mass/Vol] 9 mg/dL 4-19 [facility] Sodium levelOrdered By: Ashley Ma on 06-20-2024 Sodium [Moles/Vol] 140 mmol/L 133-145 [facility] Troponin T.cardiac High sens itivity method [Mass/Vol]Ordered By: Garrick Ma on 06-20-2024 Troponin T High Sensitivity 2 Hour 7 ng/L <22 [facility] Troponin T High Sensitivity 7 ng/L <22 [facility] White blood cell (WBC) count Ordered By: Garrick Ma on 06-20-2024 WBC (Bld) [#/Vol] 9.0 10*3/uL 4.4-11.0 [facility] Anion gap in Serum or Plasma Ordered By: Hiren Ansari on 06-13-2024 Anion gap [Moles/Vol] 12 mmol/L 5-15 [facility] BUN/creatinine ratioOrdered By: Hiren Ansari on 06-13-2024 Urea nitrogen/Creatinine [Mass ratio] 12.8 mg/mg 10- [facility] Basic Metabolic Profile (BMP )on 06-13-2024 BUN/CRE 12.8 RATIO Normal - [facility] Comment on above: Performed By: #### L 500.0850, L500.2500 #### [facility] [address] [place], [place] [address] [place], [address] Calcium [Mass/Vol] 9.8 mg/dL Normal 7.6-11.0 [facility] Comment on above: Performed By: #### L 500.4100, L500.2500 #### [facility] [address] [place], [address] Chloride [Moles/Vol] 105 mmol/L Normal 98-108 [facility] Comment on above: Performed By: #### L 500.4100, L500.2500 #### [facility] [address] [place], [address] CO2 [Moles/Vol] 24.0 mmol/L Normal 21.0-32.0 [facility] Comment on above: Performed By: #### L 500.4100, L500.2500 #### [facility] [address] [place], [address] Creatinine [Mass/Vol] 0.74 mg/dL Normal 0.70-1.20 [facility] Comment on above: Performed By: #### L 500.4100, L500.2500 #### [facility] [address] [place], [address] GAP 12 Normal 5-15 [facility] Comment on above: Performed By: #### L 500.4100, L500.2500 #### [facility] [address] [place], [address] GFR/1.73 sq M.predicted among non-blacks MDRD (S/P/Bld) [Vol rate/Area] 120 mL/min/{1.73_m2} Normal >60 [facility] Comment on above: Result Comment: mL/m in/1.73m2 CKD-EPI Creatinine Equation (2020) Performed By: #### L 500.4100, L500.2500 #### [facility] [address] [place], [address] Glucose [Mass/Vol] 114 mg/dL High 70-99 [facility] Comment on above: Performed By: #### L 500.4100, L500.2500 #### [facility] [address] [place], [address] Potassium [Moles/Vol] 4.3 mmol/L Normal 3.3-5.1 [facility] Comment on above: Performed By: #### L 500.4100, L500.2500 #### [facility] [address] [place], [address] Sodium [Moles/Vol] 141 mmol/L Normal 133-145 [facility] Comment on above: Performed By: #### L 500.4100, L500.2500 #### [facility] [address] [place], [address] Urea nitrogen [Mass/Vol] 9 mg/dL Normal 4-19 [facility] Comment on above: Performed By: #### L 500.4100, L500.2500 #### [facility] [address] [place], [address] Calculated very low density lipoprotein (VLDL) cholesterol measurementOrdered By: Hiren Ansari on 06-13-2024 VLDL Cholesterol 13 mg/dL 5-40 [facility] Carbon dioxide, total [Moles /volume] in Central venous bloodOrdered By: Hiren Ansari on 06-13-2024 CO2 [Moles/Vol] 24.0 mmol/L 21.0-32.0 [facility] Chloride assayOrdered By: Cristian Ansari on 06-13-2024 Chloride [Moles/Vol] 105 mmol/L 98-108 [facility] GFR/1.73 sq M.predicted ric g non-blacks MDRD (S/P/Bld) [Vol rate/Area]Ordered By: Hrien Ansari on 06-13-2024 Estimated GFR (MDRD) Non-Af Amer 120 >60 [facility] Comment on above: mL/min/1.73m2 CKD-EP I Creatinine Equation (2020) LDL calc ser/plasOrdered By: Hiren Ansari on 06-13-2024 LDL Cholesterol, Calculated 90 mg/dL [facility] Comment on above: Dcutkfdkhd=749-189 m g/dL & Higher Btff=806 mg/dL or greater Lipid Profileon 06-13-2024 CHOL:HDL 2.94 Normal [facility] Comment on above: Performed By: #### L 500.4100, L500.2500 #### [facility] [address] [place], [address] Cholesterol [Mass/Vol] 155 mg/dL Normal <=200 [facility] Comment on above: Result Comment: Chol esterol level, Desirable <200 mg/dL Borderline high cholesterol 200-239 mg/dL High cholesterol >=240 mg/dL Recommendations of the NCEP Adult Treatment Panel for the following risk-cutoff thresholds for the [place] population. Performed By: #### L 500.4100, L500.2500 #### [facility] [address] [place], [address] Cholesterol in HDL [Mass/Vol] 53 mg/dL Normal [facility] Comment on above: Result Comment: Brie onal Cholesterol Education Program (NCEP) guidelines: <40 mg/dL: Low HDL-cholesterol (major risk factor for CHD) >= 60 mg/dL: High HDL-cholesterol (negative risk factor for CHD) HDL-cholesterol is affected by a number of factors, e.g. smoking, exercise, hormones, sex and age. Performed By: #### L 500.4100, L500.2500 #### [facility] [address] [place], [address] Cholesterol in LDL [Mass/Vol] 90 mg/dL Normal [facility] Comment on above: Result Comment: Bord hcuccg=201-731 mg/dL Higher Jnbh=164 mg/dL or greater Performed By: #### L 500.4100, L500.2500 #### [facility] [address] [place], [address] Cholesterol in VLDL [Mass/Vol] 13 mg/dL Normal 5-40 [facility] Comment on above: Performed By: #### L 500.4100, L500.2500 #### [facility] [address] [place], [place], [address] Triglyceride [Mass/Vol] 63 mg/dL Normal [facility] Comment on above: Result Comment: The drugs N-Acetylcysteine and Metamizole may falsely depress this assay. Normal range: <150 mg/dL Borderline High: 150-199 mg/dL High: 200-499 mg/dL Very High: >500 mg/dL Performed By: #### L 500.4100, L500.2500 #### [facility] [address] [place], [place], [address] Potassium (Unsp spec) [Mass/ Vol]Ordered By: Hiren Ansari on 06-13-2024 Potassium [Moles/Vol] 4.3 mmol/L 3.3-5.1 [facility] Screening total cholesterol/ high density lipoprotein (HDL) cholesterol ratioOrdered By: Hiren Ansari on 06-13-2024 Cholesterol.total/Cholest saul in HDL [Mass ratio] 2.94 {ratio} [facility] Serum creatinine measurement (mass/volume)Ordered By: Hiren Ansari on 06-13-2024 Creatinine [Mass/Vol] 0.74 mg/dL 0.70-1.20 [facility] Serum glucose measurement (m ass/volume)Ordered By: Hiren Ansari on 06-13-2024 Glucose [Mass/Vol] 114 mg/dL High 70-99 [facility] Serum or plasma calcium cecilia urement (mass/volume)Ordered By: Hiren Ansari on 06-13-2024 Calcium [Mass/Vol] 9.8 mg/dL 7.6-11.0 [facility] Serum or plasma cholesterol in HDL measurement (mass/volume)Ordered By: Hiren nAsari on 06-13-2024 Cholesterol in HDL [Mass/Vol] 53 mg/dL >40 [facility] Comment on above: National Cholesterol Education Program (NCEP) guidelines:<40 mg/dL: Low HDL-cholesterol (major risk factor for CHD)>= 60 mg/dL: High HDL-cholesterol (negative risk factor for CHD)HDL-cholesterol is affected by a number of factors, e.g. smoking, exercise, hormones, sex and age. Serum or plasma cholesterol measurement (mass/volume)Ordered By: Hiren Ansari on 06-13-2024 Cholesterol [Mass/Vol] 155 mg/dL <201 [facility] Comment on above: Cholesterol level, D esirable <200 mg/dLBorderline high cholesterol 200-239 mg/dLHigh cholesterol >=240 mg/dLRecommendations of the NCEP Adult Treatment Panel for the following risk-cutoff thresholds for the [place] population. Serum or plasma urea nitroge n measurement (mass/volume)Ordered By: Hiren Ansari on 06-13-2024 Urea nitrogen [Mass/Vol] 9 mg/dL 4-19 [facility] Sodium levelOrdered By: Hiren Ansari on 06-13-2024 Sodium [Moles/Vol] 141 mmol/L 133-145 [facility] Triglycerides measurementOrd ered By: Hiren Ansari on 06-13-2024 Triglyceride [Mass/Vol] 63 mg/dL <[address] [facility] Comment on above: The drugs N-Acetylcy steine and Metamizole may falsely depress this assay. Normal range: <150 mg/dLBorderline High: 150-199 mg/dLHigh: 200-499 mg/dLVery High: >500 mg/dL CT CHEST FOR PE W/ CONTon CT CHEST FOR PE W/ CONT [place] [address] Name: WILMAN HEARD Phys: SARAH MERCADO D.O. : [birth year] Age: 37 Sex: M Acct: [id number] Loc: ED Exam Date: 11/08/22 Status: REG ER Radiology No.: Unit Number: [id number] Exam # Type/Exam [id number] CT / CT CHEST FOR PE W/ [...] By: KEILA LUCIANO M.D. Tests performed at: [address] [address] Normal [facility] D-DIMERon 11-09-2022 D-DIMER 1671 ng/mLDDU High <200-230 [facility] Comment on above: Result Comment: The cut-off level recommended for the exclusion of pulmonary embolism(PE) or deep vein thrombosis(DVT) is <=230ng/mL DDU. Performed By: #### L 200.1660 #### [facility] - [facility] [address] [place] [address] EMERGENCY DEPARTMENT REPORTo n 11-09-2022 [place] [address] HEALTH INFORMATION MANAGEMENT EMERGENCY DEPARTMENT REPORT Patient: WILMAN HEARD ELLEN Fartun Parekh [id number] [age] M Status: DEP ER ED [...] at this time. 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 Final dictation by Jess for Wilman Heard. IMPRESSION: 1. Atypical chest pain/musculoskeleta l chest pain. 2. Hypertension. Report#: Dict ID [id number] / Int ID [id number] 11/10/22 0702 ___ SARAH MERCADO D.O. cc: No Physician; SARAH MERCADO D.O. << Signature on File>> Reported By: SARAH MERCADO D.O. Signed By: SARAH MERCADO D.O. Tests performed at: [place] [address] [facility] [place] [address] HEALTH INFORMATION MANAGEMENT EMERGENCY DEPARTMENT REPORT Patient: WILMAN HEARD SARAH MERCADO D.O. [id number] [age] M Status: [facility] ER ED Date of Service: 11/08/22 ADDENDUM: Please add additionally, this patient had 2 troponins less than 12. Both of them were 6 actually. Report#: Dict ID [id number] / Int ID [id number] 11/10/22 0702 ___ SARAH MERCADO D.O. cc: No Physician; SARAH MERCADO D.O. << Signature on File>> Reported By: SARAH MERCADO D.O. Signed By: SARAH MERCADO D.O. Tests performed at: [facility] [address] [place] [address] [facility] [place] [address] [facility] INFORMATION [facility] EMERGENCY DEPARTMENT REPORT Patient: WILMAN HEARD JULIAN DIEHL D.O. [id number] [age] M Status: [facility] ER ED Date of Service: 11/08/22 [...] stable at this time. Report#: Dict ID [id number] / Int ID [id number] 11/29/221929 ___ JULIAN DIEHL D.O. cc: JULIAN DIEHL D.O.; No Physician << Signature on File>> Reported By: JULIAN DIEHL D.O. Signed By: JULIAN DIEHL D.O. Tests performed at: [address] [address] Normal [facility] hsTROP Ton 11-09-2022 hsTROP T 6.56 ng/L Normal 6-12 [facility] Comment on above: Result Comment: When [...] #### L 301.0080 #### ML - [facility]AT[facility] [address] [place] [address] BMPon 11-08-2022 Anion gap [Moles/Vol] 20.6 mmol/L Normal 15-22 [facility] Comment on above: Performed By: #### L 100.0010, L301.0080 #### ML - [facility] [address] [place] [address] Calcium [Mass/Vol] 9.2 mg/dL Normal 8.6-10.0 [facility] Comment on above: Performed By: #### L 100.0010, L301.0080 #### ML - [facility]ATORY [address] [place] [address] Chloride [Moles/Vol] 99 mmol/L Normal 98-107 [facility] Comment on above: Performed By: #### L 100.0010, L301.0080 #### ML - [facility]AT[facility] [address] [place] [address] CO2 [Moles/Vol] 21 mmol/L Low 22-29 [facility] Comment on above: Performed By: #### L 100.0010, L301.0080 #### ML - LABORATORY [address] [place] [address] Creatinine [Mass/Vol] 0.86 mg/dL Normal 0.73-1.22 [facility] Comment on above: Performed By: #### L 100.0010, L301.0080 #### - LABORATORY [address] [place] [address] eGFR if AFR NUVIA > 60 ml/min/1.73m2 Normal [facility] Comment on above: Result Comment: eGFR >= [...] L 100.0010, L301.0080 #### ML - LABORATORY [address] [place] [address] eGFR nonAFR Nuvia > 60 ml/Min/1.73m2 Normal [facility] Comment on above: Performed By: #### L 100.0010, L301.0080 #### [facility] [address] [place] [address] Glucose [Mass/Vol] 108 mg/dL High 74-106 [facility] Comment on above: Performed By: #### L 100.0010, L301.0080 #### ML [facility] [address] [place] [address] Potassium [Moles/Vol] 3.6 mmol/L Normal 3.5-5.0 [facility] Comment on above: Performed By: #### L 100.0010, L301.0080 #### [facility] [address] [place] [address] Sodium [Moles/Vol] 137 mmol/L Normal 135-145 [facility] Comment on above: Performed By: #### L 100.0010, L301.0080 #### ML - LABORATORY [address] [place] [address] Urea nitrogen [Mass/Vol] 10 mg/dL Normal 6-20 [facility] Comment on above: Performed By: #### L 100.0010, L301.0080 #### ML - LABORATORY [address] [place] [address] Basic metabolic 2000 panelon 11-08-2022 Anion gap [Moles/Vol] 20.6 mmol/L 15 - 2 2 mmol/L [facility] Calcium [Mass/Vol] 9.2 mg/dL 8.6 - 10. 0 mg/dL [facility] Chloride [Moles/Vol] 99 mmol/L 98 - 10 7 mmol/L [facility] CO2 [Moles/Vol] 21 mmol/L Low 22 - 29 mmol/L [facility] Creatinine [Mass/Vol] 0.86 mg/dL 0.73 - 1.22 mg/dL [facility] eGFR-All Other Races > 60 ml/Min/1.73m2 [facility] GFR/1.73 sq M.predicted among blacks MDRD (S/P/Bld) [Vol rate/Area] mL/min/{1.73_m2} [facility] Glucose [Mass/Vol] 108 mg/dL High 74 - 106 mg/dL [facility] Potassium [Moles/Vol] 3.6 mmol/L 3.5 - 5.0 mmol/L [facility] Sodium [Moles/Vol] 137 mmol/L 135 - 145 mmol/L [facility] Urea nitrogen [Mass/Vol] 10 mg/dL 6 - 20 mg/d L [facility] CBCon 11-08-2022 BASO# 0.08 x10(3) Normal 0.00-0.10 [facility] Comment on above: Performed By: #### L 200.0010 ####ML - [id number] [place] [address] Basophils/100 WBC (Bld) 0.8 % Normal 0.0-1.0 [facility] Comment on above: Performed By: #### L 200.0010 ####ML - [id number] [place] [address] EOS# 0.11 x10(3) Normal 0.00-0.54 [facility] Comment on above: Performed By: #### L 200.0010 ####ML - [address] [place] [address] Eosinophils/100 WBC (Bld) 1.1 % Normal 0.5-4.9 [facility] Comment on above: Performed By: #### L 200.0010 ####ML [facility] [address] [place] [address] Erythrocyte distribution width (RBC) [Ratio] 11.8 % Low 12.7-15.3 [facility] Comment on above: Performed By: #### L 200.0010 ####ML [facility] [address] [place] [address] Hematocrit (Bld) [Volume fraction] 43.7 % Normal 42.0-51.0 [facility] Comment on above: Performed By: #### L 200.0010 ####ML [facility] [address] [place] [address] Hemoglobin (Bld) [Mass/Vol] 14.9 g/dL Normal 14.0-17.2 [facility] Comment on above: Performed By: #### L 200.0010 ####ML [facility] [address] [place] [address] IMM GRAN# 0.03 x10(3) High 0-0 [facility] Comment on above: Performed By: #### L 200.0010 ####ML - [address] [place] [address] IMM GRAN% 0.3 % Normal [facility] Comment on above: Performed By: #### L 200.0010 ####ML [facility] [address] [place] [address] LYMPH# 1.92 x10(3) Normal 1.00-3.50 [facility] Comment on above: Performed By: #### L 200.0010 ####ML [facility] [address] [place] [address] Lymphocytes/100 WBC (Bld) 18.8 % Normal 16.0-48.0 [facility] Comment on above: Performed By: #### L 200.0010 ####ML [facility] K[address]QSQ[address] [place] [address] MCH (RBC) [Entitic mass] 30.5 pg Normal 28.8-32.2 [facility] Comment on above: Performed By: #### L 200.0010 ####ML [facility] [address] [place] [address] MCHC (RBC) [Mass/Vol] 34.1 g/dL Normal 33.0-36.0 [facility] Comment on above: Performed By: #### L 200.0010 ####ML - [address] [place] [address] MCV (RBC) [Entitic vol] 89.4 fL Normal 80.0-94.0 [facility] Comment on above: Performed By: #### L 200.0010 ####ML [address] [address] MONO# 0.91 x10(3) High 0.30-0.80 [facility] Comment on above: Performed By: #### L 200.0010 ####ML [address] [address] Monocytes/100 WBC (Bld) 8.9 % Normal 4.3-11.2 [facility] Comment on above: Performed By: #### L 200.0010 ####ML [facility] [address] [place] [address] NEUT# 7.15 x10(3) High 1.40-6.50 [facility] Comment on above: Performed By: #### L 200.0010 ####ML [facility] [address] [place] [address] Neutrophils/100 WBC (Bld) 70.1 % Normal 45.0-73.0 [facility] Comment on above: Performed By: #### L 200.0010 ####ML [facility] [address] [place] [address] Platelet mean volume (Bld) [Entitic vol] 9.8 fL High 7.4-9.2 [facility] Comment on above: Performed By: #### L 200.0010 ####ML - [facility] [address]MZICZRW[address] [place] [address] PLT 346 X10(3) Normal 150-450 [facility] Comment on above: Performed By: #### L 200.0010 ####ML - NEKHQYNZUE541 [place] [address] RBC 4.89 x10(6) Normal 4.80-5.50 [facility] Comment on above: Performed By: #### L 200.0010 ####ML - [facility] AKCXVWZGFG9[address] [place] [address] WBC 10.2 x10(3) High 4.5-10.0 [facility] Comment on above: Performed By: #### L 200.0010 ####ML - YKUKWBEAMK[address] [place] [address] CBC W Auto Differential pane l (Bld)on 11-08-2022 BASO ABS 0.08 x10(3) 0.00 - 0.10 x10(3) [facility] Basophils/100 WBC (Bld) 0.8 % 0.0 - 1.0 % [facility] EOS ABS 0.11 x10(3) 0.00 - 0.54 x10(3) [facility] Eosinophils/100 WBC (Bld) 1.1 % 0.5 - 4.9 % [facility] Erythrocyte distribution width (RBC) [Ratio] 11.8 % Low 12.7 - 15.3 % [facility] Hematocrit (Bld) [Volume fraction] 43.7 % 42.0 - 51.0 % [facility] Hemoglobin (Bld) [Mass/Vol] 14.9 g/dL 14.0 - 17.2 g/dL [facility] Immature Gran % 0.3 % [facility] Immature Gran Abs 0.03 x10(3) High 0 - 0 x10(3) [facility] LYMPH ABS 1.92 x10(3) 1.00 - 3.50 x10(3) [facility] Lymphocytes/100 WBC (Bld) 18.8 % 16.0 - 48. 0 % [facility] MCH (RBC) [Entitic mass] 30.5 pg 28. 8 - 32.2 pg [facility] MCHC (RBC) [Mass/Vol] 34.1 g/dL 33.0 - 36.0 g/dL [facility] MCV (RBC) [Entitic vol] 89.4 fL 80.0 - 94.0 fl [facility] MONO ABS 0.91 x10(3) High 0.30 - 0.80 x10(3) [facility] Monocytes/100 WBC (Bld) 8.9 % 4.3 - 11.2 % [facility] Neutrophil Ab 7.15 x10(3) High 1.40 - 6.50 x10(3) [facility] Neutrophils/100 WBC (Bld) 70.1 % 45.0 - 73. 0 % [facility] Platelet mean volume (Bld) [Entitic vol] 9.8 fL High 7.4 - 9.2 fl [facility] Platelets (Bld) [#/Vol] 346 X10(3) 150 - 450 X10(3) [facility] RBC (Bld) [#/Vol] 4.89 x10(6) 4.80 - 5.5 0 x10(6) [facility] WBC (Bld) [#/Vol] 10.2 x10(3) High 4.5 - 10.0 x10(3) [facility] CHEST-ONE VIEW ONLY - CXR1on 11-08-2022 CHEST-ONE VIEW ONLY - CXR1 [place] [address] Name: WILMAN HEARD Phys: No Physician : [birth year] Age: 37 Sex: M Acct: [id number] Loc: ED Exam Date: 11/08/22 Status: REG ER Radiology No.: Unit Number: [id number] Exam # Type/Exam [id number] RAD / CHEST-ONE VIEW ONLY - CXR1 [...] By: KEILA LUCIANO M.D. Signed By: KEILA ULCIANO M.D. Tests performed at: [address] [address] [facility] CNOVon 11-08-2022 CNOV Office Visit (UCUPNO) ---- WILMAN HEARD ([id number]) 1985 M Date Time Provider Department 11/08/22 7:30 PM EMELY DAVIS [facility] During your visit today, we recorded the following information about you: Temperature Pulse Respiration Blood pressure 98.2 degrees 114/minute 20/minute 163/116 Weight 109.3 kg Eemly Davis PA-C 11/08/2022 8:00 PM Signed HPI: [...] or at what age. Patient came to [facility] looking for an EKG. Physical exam is otherwise unremarkable. EKG is being obtained that we did talk about the potential for a non-STEMI and that he needs further evaluation going beyond what were able to do here at [facility] with recommendations to going to the emergency department. EKG identified sinus rhythm with a rate 100, NH intervals 150, QRS duration 116, R axis [...] PA-C 11/08/2022 7:44 PM Signed Go to [employer] ER Referring Pro (more content not included)... Normal [facility] CT CHEST W IVCON PEon 2022 [facility] ECG COMPLETEon 11-08-2022 ECG COMPLETE Ventricular Rate : 100 BPM Atrial Rate : 100 BPM P-R Interval : 150 ms QRS Duration : 116 ms Q-T Interval : 358 ms QTC Calculation(Bazett) : 461 ms Calculated P [place] : 55 degrees Calculated R [place] : 54 degrees Calculated T [place] : 10 degrees NORMAL SINUS RHYTHM INFERIOR T WAVE ABNORMALITY NO PREVIOUS ECGS AVAILABLE Confirmed by LEO JO MD ([id number]) on 11/17/2022 7:35:43 AM NAME : WILMAN HEARD PID : [id number] : 1985 Gender : Male Race : ORD : [id number] Procedure Date : Nov 08 2022 19:37:51 Edit Date : Nov 17 2022 07:35:44 Diagnosis: NORMAL SINUS RHYTHM INFERIOR T WAVE ABNORMALITY NO PREVIOUS ECGS AVAILABLE Confirmed by LEO JO MD ([id number]) on 11/17/2022 7:35:43 AM Test Reason : Location : 607 : [facility] Overread By : LEO JO MD Edited By : LEO JO MD Referred By : EMELY DAVIS Acquired by : , Normal [facility] ELECTROCARDIOGRAMon 11-09-19 [place] [address] HEALTH INFORMATION MANAGEMENT ELECTROCARDIOGRAM REPORT Patient: WILMAN HEARD Ordering: No Physician [id number] [age] M Exam Date: 11/08/22 Report #: [id number] Status: DEP ER ED Test Reason : Blood Pressure : / mmHG Vent. Rate : 106 BPM Atrial Rate : 106 BPM P-R Int : 152 ms QRS Dur : 110 ms QT Int : 334 ms P-R-T Axes : 055 062 007 degrees QTc Int : 443 ms Sinus tachycardia Otherwise normal ECG No previous ECGs available Confirmed by LEO JO MD ([id number]) on 11/14/2022 5:00:12 PM Referred By: JULIAN DIEHL Confirmed By:LEO JO MD Signed in [employer] 11/14/22 1701 LEO JO M.D. cc: << Signature on File>> Reported By: LEO JO M.D. Signed By: LEO JO M.D. Tests performed at: [address] [address] Normal [facility] Fibrin D-dimer FEU (PPP) [Ma ss/Vol]on 11-08-2022 Fibrin D-dimer FEU [place] (Bld) [Mass/Vol] 1671 ng/mLDDU High <200 - 230 ng/mLDDU [facility] HIGH SENSITIVITY TROPONIN To n 11-08-2022 TROPONIN T(HIGHLY SENSITIVE) 6.56 ng/L 6 - 12 ng/L [facility] TROPONIN T(HIGHLY SENSITIVE) 6.78 ng/L 6 - 12 ng/L [facility] XR CHEST 1V FRONTALon 2022 [facility] hsTROP Ton 11-08-2022 hsTROP T 6.78 ng/L Normal 6-12 [facility] Comment on above: Result Comment: When [...] L301.0080 #### ML - [facility] [address] [place] [address] Vital Signs Date Time Vital Sign Value Performing Clinician Faci lity 06-20-2024 14:39-0400 Body temperature 97.9 [degF] Dr. Hiren Ansari MD Work Phone: [facility] 06-20-2024 14:39-0400 Diastolic blood pressure 107 mm[Hg] Dr. Hiren Ansari MD Work Phone: [facility] 06-20-2024 14:39-0400 Heart rate 71 /min Dr. Hiren Ansari MD Work Phone: [facility] 06-20-2024 14:39-0400 Respiratory rate 17 /min Dr. Hiren Ansari MD Work Phone: [facility] 06-20-2024 14:39-0400 SaO2% (BldA) [Mass fraction] 99 % Dr. Hiren Ansari MD Work Phone: [facility] 06-20-2024 14:39-0400 Systolic blood pressure 136 mm[Hg] Dr. Hiren Ansari MD Work Phone: [facility] 06-20-2024 11:18-0400 Body height 185.[address] Hiren Ansari MD Work Phone: [facility] 06-20-2024 11:18-0400 Body mass index (BMI) [Ratio] 28.9 kg/m2 Dr. Hiren Ansari MD Work Phone: [facility] 06-20-2024 11:18-0400 Body weight 99.[address] Hiren Ansari MD Work Phone: [facility] 11-08-2022 19:34-0400 Body temperature 98.2 [degF] Emely Dyko PA-C Work Phone: [facility] 11-08-2022 19:34-0400 Body weight 109.32 kg Emely Dyko PA-C Work Phone: [facility] 11-08-2022 19:34-0400 Diastolic blood pressure 116 mm[Hg] Emely Dyko PA-C Work Phone: [facility] 11-08-2022 19:34-0400 Heart rate 114 /min Emely Dyko PA-C Work Phone: [facility] 11-08-2022 19:34-0400 Respiratory rate 20 /min Emely Dyko PA-C Work Phone: [facility] 11-08-2022 19:34-0400 SaO2% (BldA) [Mass fraction] 99 % Emely Dyko PA-C Work Phone: [facility] 11-08-2022 19:34-0400 Systolic blood pressure 163 mm[Hg] Emely Dyko PA-C Work Phone: [facility] Encounters Encounter Date Encounter Type Care Provider Facility Start: 07-25-2024 End: 07-25-2024 Emergency department patient visit NONE~[id number] NONE NONE NONE Facility:[facility] Start: 06-20-2024 End: 06-20-2024 Emergency department patient visit Dr. Hiren Ansari MD Work Phone: -Emergency Department Work Phone: Start: 06-17-2024 Encounter for genera l adult medical examination without abnormal findings Hiren Ansari [facility] Start: 06-13-2024 End: 06-13-[address] Hiren Ansari MD Work Phone: [facility] Work Phone: Start: 06-13-2024 End: 06-13-[address] Hiren Ansari MD -Laboratory, [place] Work Phone: Start: 06-13-2024 End: 06-13-2024 ambulatory Hiren Ansari Facility:[facility] Start: 11-08-2022 End: 11-09-2022 Emergency department patient visit JULIAN DIEHL Facility:[facility] Start: 11-08-2022 End: 11-08-2022 ambulatory EMELY DAVIS Facility:[place] Start: 11-08-2022 End: 11-09-2022 Subsequent hospital visit by physician [facility] Comment on above: CHEST PAIN Start: 11-08-2022 End: 11-08-2022 Patient encounter procedure Emely Davis PA-C Work Phone: [facility] Comment on above: Chest pain, unspecif ied type (Primary Dx) Procedures Date Procedure Procedure Detail Performing Clinician Start: 06-20-2024 X-ray of chest, PA a nd lateral views Dr. Hiren Ansari MD Work Phone: Start: 11-08-2022 Ct thorax w/contrast material Sarah Guzmanervin Mercado DO Work Phone: Start: 11-08-2022 HIGH SENSITIVITY TRO PONIN T Provider [facility] Start: 11-08-2022 D-DIMER Julian huang DO Work Phone: Start: 11-08-2022 BASIC METABOLIC PNL Pro vider [facility] Start: 11-08-2022 CBC + DIFF Provider [facility] Start: 11-08-2022 HIGH SENSITIVITY TRO PONIN T Provider [facility] Start: 11-08-2022 Radiologic exam ches t single view Provider [facility] Start: 11-08-2022 Ecg routine ecg w/le ast 12 lds i&r only Emely Davis PA-C Work Phone: Plan of Treatment Date Care Activity Detail Author Start: 06-20-2024 [facility] Start: 06-20-2024 [facility] Start: 11-10-2022 Influenza vaccination INFLUENZA (#1) [facility] Start: 03-12-2022 DEPRESSION ASSESSMENT DEPRESSION ASSESSMENT [facility] Start: 2021 LIPID SCREEN LIPID SCREEN [facility] Start: 2005 Urine microalbumin profile DTAP,TDAP,TD (1 - Tdap) [facility] Start: 2004 HEPATITIS C SCREENING HEPATITIS C SCREENING [facility] Start: 2004 HIV SCREENING HIV SCREENING [facility] Start: 02-02-1987 COVID-19 VACCINE (#1) COVID-19 VACCINE (#1) [facility] Start: 1986 HEPATITIS B (1 of 3 - 3-dose series) HEPATITIS B (1 of 3 - 3-dose series) [facility] ECG COMPLETE ECG COMPLETE ECG Routine Chest pain, unspecified type 11/08/2022 7:37 PM EDT [facility] Work Phone: Patient referral [facility] Work Phone: Payers Date Payer Category Payer Self-pay 2021 Unknown [employer]ASMINA [employer]UR PPO [id number] 2021-Present [phone] [address] [place] [address] PPO [id number] 2021 Unknown [id number] 1985 Unknown [id number] Unknown [id number] Unknown [id number] Unknown [id number] Social History Date Type Detail Facility Start: 11-08-2022 End: 06-20-2024 Tobacco smoking status NHIS Never smoked tobacco [facility] Start: 11-08-2022 Tobacco use and exposure User of smokeless tobacco [facility] Start: 11-08-2022 Alcohol intake Current drinke r of alcohol (finding) [facility] Start: 11-08-2022 History of Social function [facility] Start: 11-08-2022 Tobacco use panel [facility] Start: 1985 Sex Assigned At Not on file [facility] Tobacco smoking status [facility] Tobacco smoking consumption unknown [facility] Start: 06-17-2024 End: 06-20-2024 Sex Male (finding) [facility] Start: 1985 Sex Assigned At Male [facility] Mental Status Date Assessment Result Facility 06-20-2024 Cognitive function Voice/Name [facility] Work Phone: Clinical Notes 11-08-2022 to 06-20-2024 Note Date & Type Note Facility 06-20-2024 Discharge summary [facility] 06-20-2024 Discharge summary Note Date/Time June 20, 2024 2:30pm [facility] Records Department [address] [place] [address] Emergency Department Summary 06/20/24 MR#: [id number] Acct: [id number] Name: WILMAN HEARD Yanira Rep #:[id number] : 1985 38 From: Garrick Ma DO [...] does endorse some shortness ofbreath with this. [facility] Medical History Hypertension Home Medications ?Medication ?Instructions [...] following commands knew that he was at [facility] 2024 Skin: Warm, dry, intact no [...] 73.1 H Lymph % (Auto) 18.2 L Bent % (Auto) 6.7 Eos % (Auto) 1.1 [...] active cardiopulmonary disease. Sign report. Reading Location: [place] [address] Discharge Plan Triage Chief Complaint: Chest Pain [...] here today was largely unremarkable. Print Language: Latvian Disposition Disposition: Home, Self Care What to do if you have Problems For any increased pain, shortness of breath, bleeding, nausea or vomiting, chestpain, or any unexpected problems, contact your Primary Care Provider. Call [facility] ([phone]) or report to the closest Emergency Room. Call 911 if necessary. 06/20/24 1430 <Electronically signed by Garrick Ma DO> Cosigner Signature (if applicable): CC: Dr. Hiren Ansari MD ~ Signed [facility] Work Phone: 1(881) 946-874304-11-2025 Radiology Diagnostic study note [facility] Imaging Services [address] [place] [address] Chest PA and Lateral MR#: [id number] Acct: [id number] Name: FÉLIXWILMAN D Rep #: [id number] : 1985 M 38 From: Meredith Bedolla MD PCP: Dr. Hiren Ansari MD Status: PRE E R Study:Chest PA and Lateral Date of Exam: 06/20/24 Exam# [id number] Ordering Dr: Daniel Ma DO PROCEDURE: CHEST [...] active cardiopulmonary disease. Sign report. Reading Location: [place] [address] CC: Dr. Hiren Ansari MD; Dr. Garrick Ma DO ~ Optician Apprentice: Signed [facility]04-11-2025 Hospital Discharge instructions Additional Instructions Increase your lisinopril dose from 5 mg to 10 mg daily. Keep your blood pressure log as you are already doing. Return for worsening symptoms or concerns as we discussed here. Your workup here today was largely unremarkable.[facility] Work Phone: 1(291) 300-422808-30-2023 NoteHNO ID: [id number] Author: Emely Davis PA-C Service: ? Author Type: Physician Biodiesel Engine Specialist Type: Progress Notes Filed: 11/08/2022 8:00 PM [...] what were able to do here at [facility] with recommendations to going to the emergency department. EKG identified sinus rhythm with a rate 100, NH intervals 150, QRS duration 116, R axis of 54. There is no obvious ischemia though he does have a T wave abnormality inferior leads. There is no ectopy. There is no old to compare with. Sent to the ED for further evaluation, one of his coworkers will take him to [place] Emely Davis PA-C This note was generated with voice recognition software and may contain errors, including spelling, grammar, syntax and misrecognition of what was dictated, that are not fully corrected.[facility]08-30-2023 Instructions* Patient Instructions* Emely Davis PA-C - 11/08/2022 7:44 PM EDT Go to [place] ER documented in this encounterUniversity [facility] History of Present illness Narrative* Emely Davis [...] or at what age. Patient came to [facility] looking for an EKG. Physical exam is otherwise unremarkable. EKG is being obtained that we did talk about the potentialfor a non-STEMI and that he needs further evaluation going beyond what were able to do here at [facility] with recommendations to going to the emergency department. EKG identified sinus rhythm with a rate 100, NH intervals 150, QRS duration 116, R axis [...] are not fully corrected. documented in this encounterUniversity Hospitals [facility] CenterEvalunem[facility] [place] note* Diagnosis Chest pain, unspecified type- Primary documented in this encounter [facility] noteNo assessment information availableWSt. Anthony's Hospital Work Phone: Reason for referral (narrative)* Outpatient Procedure (Routine) - Closed Specialty Diagnoses / Procedures Referred By Contac t Referred To [facility] Diagnoses Chest pain, unspecified type Procedures ECG COMPLETE ECG ROUTINE ECG W/LEAST 12 LDS W/I&R Emely Davis PA-C [address] [place] [address] [facility] [place] [address] Referral ID Status Reason Start Date Expiration Date V isits Requested Visits Authorized [id number] Closed Auto-Generate d Referral 11/08/2022 11/08/2023 1 1 [facility] for referral (narrative)No reason for referral information availableWSt. Anthony's Hospital Work Phone: Summary Purpose Family History No Family History Records FoundNo Family History Records FoundNo Family History Records FoundNo Family History Records Found Advance Directives No Advanced Directives Records Found Advance Directive Response Recorded Date/ Time Living Will No June 20, 2024 11:32am Do you have a Healthcare Power of Environmental Studies Faculty Member? No June 20, 2024 11:32am Chief Complaint [...] or prosecute any alcohol or drug abuse patient.[facility] CenterIn the event this information is protected by the Federal Confidentiality of Alcohol and Drug Abuse Patient Records regulations: The Federal rules restrict any use of the information to criminally investigate or prosecute any alcohol or drug abuse patient.[facility] Reason for Visit (unrecogniz ed section and [...] section and content) DATE CREATED AUTHOR 11/18/2022 [facility] DATE CREATED AUTHOR AUTHOR'S ORGANIZ ATION 12/01/2022 [facility] DATE CREATED AUTHOR AUTHOR'S ORGANIZ ATION 06/26/2024 [facility] DATE CREATED AUTHOR AUTHOR'S ORGANIZ ATION 08/06/2024 [facility] ospital Care Teams (unrecognized sec tion and [...] BE BASED ON THE PRIMARY CLINICAL RECORDS. [employer] provides no warranty or guarantee of the accuracy or completeness of information in this document.
[2024-10-17 08:14] LABS: Anion Gap 11 (5-15); BUN 14 mg/dL (4-19); BUN/Creat Ratio 17.9 RATIO (10-20); Calcium,Total 9.5 mg/dL (7.6-11.0); Carbon Dioxide 22.8 mmol/L (21.0-32.0); Chloride 102 mmol/L (98-108); Cholesterol 202 mg/dL (<=200); Glucose 105 mg/dL (70-99); Low Density Lipoprotein Calc. 102 mg/dL; Potassium 4.4 mmol/L (3.3-5.1); Triglycerides 59 mg/dL; Very Low Density Lipoprotein 12 mg/dL (5-40); cholesterol:hdl ratio screen 2.27
== END | disposition home or self-care (01) ==
PROVIDERS: PCP Family Medicine; Referring Provider Family Medicine; Visit Provider Family Medicine
DX: I10 Essential (primary) hypertension (principal)
CPT/HCPCS: 36415; 80048; 80061